=== PATIENT | male | born 1965 | race Caucasian/White ===

== ENCOUNTER 2022-01-24 14:36 | Emergency (ER) | payer MEDICARE, MEDICAID, SELFPAY ==
--- NOTE | ~2022-01-24 | CT_ITS ---
EXAMINATION: CT SOFT TISSUE NECK WITH CONTRAST CLINICAL INFORMATION: Rule out Cesario's angina. COMPARISON: None TECHNIQUE: Following the administration of 100 mL of Omnipaque 300 intravenous contrast, helical imaging was performed in the axial plane with generation of coronal and sagittal reformatted images. This CT examination was performed using dose optimization techniques as appropriate, variously including the following: *Automated exposure control *Adjustment of mA and/or kV according to patient size (this includes techniques or standardized protocols for targeted exams where dose is matched to indication/reason for exam; i.e. extremities or head) *Use of iterative reconstruction technique DLP: 600 mGy-cm FINDINGS: The left submandibular gland demonstrates asymmetric hyperemia, edema, and stranding with interfascial fluid. Stranding extends from the submandibular triangle to the left anterolateral soft tissues. No drainable fluid collection is seen. There is no evidence of obstructing sialolith or definite dilatation of the fourth and duct. The right submandibular gland appears normal. No definite inflammation is seen along the floor of mouth. The nasopharynx and oropharynx appear normal. There is no evidence of laryngeal lesion. The parotid glands appear normal and symmetric. There is a top normal left level 2A lymph node. Nonenlarged lymph nodes are seen along the bilateral cervical chains. There is evidence of left-sided thyroidectomy with surgical clips seen within the thyroidectomy bed. There is stranding and fluid within the thyroidectomy bed the right lobe of the thyroid gland appears normal. No enlarged upper mediastinal lymph nodes are seen. There is no consolidation in the upper lungs. The major neck vessels appear patent. The imaged intracranial contents appear normal. There is chronic appearing defect of the nasal floor in addition to defects of the nasal septum. The bilateral mastoids are under pneumatized but clear. There is mild paranasal sinus mucosal thickening with some aerated secretions demonstrated. The cervical spine is intact. CT/CT soft tissue neck w IV con IMPRESSION: 1. Inflammatory changes are seen within the left submandibular gland compatible with acute sialoadenitis. No drainable fluid collection is seen. No evidence of obstructing sialolith. Top normal left level 2A lymph node is seen which could be reactive. No definite inflammation is seen along the floor of mouth however direct visual inspection of the oral cavity is recommended for more sensitive evaluation. 2. Left thyroidectomy changes are noted. There is stranding and fluid within the left thyroidectomy bed. Given this appearance, these surgical changes are suspected to be recent. If surgery was not recent, underlying infection/inflammation should be clinically excluded.
[2022-01-24 14:50] VITALS: BP 150/84; BP 196/103; PULSE 103; PULSE 108; RESP 16; O2SAT 97; O2SAT 98; BMI 31.2
--- NOTE | 2022-01-24 14:53 | ED_ITS ---
HPI - Neck Pain/Injury General Chief Complaint: Neck Pain/Injury Stated Complaint: NECK SWELLING Time Seen by Provider: 01/24/22 14:41 Source: patient and EMS Mode of arrival: EMS Limitations: no limitations History of Present Illness HPI Narrative: 56-year-old male with a history of ync-ycceztz-eoogkzuej diabetes, anxiety, high cholesterol, hypertension, nontoxic thyroid nodule who presents from [facility] here with complaints of neck swelling since yesterday. Per patient denies any pain, injury or swelling. No redness or warmth. Denies any dental pain. Actually reports that swelling is improved and not worsened from yesterday. Related Data Previous Rx's Medication Instructions Recorded clindamycin HCl 150 mg capsule 150 mg PO Q6H 7 days #28 caps 01/24/22 Allergies Allergy/AdvReac Type Severity Reaction Status Date / Time penicillin G Allergy Unknown rash Verified 04/26/18 00:00 Penicillins [PENICILLINS] Allergy Unknown HIVES Unverified 11/03/19 19:36 Review of Systems Review of Systems: Yes all other systems are reviewed and are negative Constitutional: Constitutional: Reports no additional constitutional complaints, Denies body ache(s), Denies chills, Denies fever(s), Denies headache(s) and Denies weakness Eyes: Eyes: Reports no additional eye complaints and Denies change in vision ENT: Reports system reviewed and no additional complaints, except as documented, Denies dysphagia, Denies dizziness, Denies headache(s), Denies nasal congestion, Denies nasal discharge, Reports neck mass, Denies neck pain and Reports throat swelling Cardiovascular: Cardiovascular: Reports no additional cardiovascular complaints, Denies chest pain, Denies leg edema and Denies dyspnea Respiratory: Respiratory: Reports no additional respiratory complaints, Denies cough and Denies dyspnea Gastrointestinal: Gastrointestinal: Reports no additional gastrointestinal complaints, Denies abdominal pain, Denies dysphagia, Denies diarrhea, Denies nausea and Denies vomiting Genitourinary: Genitourinary: Denies urinary incontinence Musculoskeletal: Musculoskeletal: Reports no additional musculoskeletal complaints, Denies back pain, Denies arthralgias, Denies joint swelling, Denies neck pain, Denies numbness and Denies tingling Integumentary/Breasts: Skin/Breast: Reports system reviewed and no additional complaints, except as docu and Denies rash Neurologic: Reports system reviewed and no additional complaints, except as documented, Denies Abnormal speech present, Denies dizziness, Denies headache(s), Denies numbness, Denies tingling and Denies weakness Allergic/Immunologic: Allergic/Immunologic: Reports throat swelling PMFSH Past Medical History Attestation statement: The following information was validated with the patient. Source: old records reviewed and nursing notes reviewed Social History Social History Advance Directives: No Advance Directives Information Provided: Yes Physical Exam Vital Signs: Vital Signs: Last Vital Signs Temp 97.6 F 01/24/22 17:38 Pulse 99 01/24/22 17:38 Resp 18 01/24/22 17:38 BP 146/102 H 01/24/22 17:38 Pulse Ox 95 01/24/22 17:38 O2 Del Method 01/24/22 17:38 BMI result Body Mass Index 31.2 Const: General: cooperative, healthy appearing, comfortable and no acute distress Orientation/consciousness: patient oriented x3 Limitations: no limitations HEENT: Head: Yes normal to inspection Ears: hearing grossly normal bilaterally and TM's normal bilaterally General nose exam: Normal external nose present Face and sinus: Yes normal facial exam Mouth: Normal oral and palatal mucosa present Throat: Yes posterior oropharynx normal Eyes: General: appearance normal, both eyes and all related structures Pupils: Equal, round and reactive pupils present Neck: Other: Patient with submental swelling which is nontender. Moderate swelling noted. No swelling underneath the tongue noted. No stridor Neck: Yes normal visual inspection, Yes full ROM, Yes no lymphadenopathy and Yes no meningeal signs Chest: Chest palpation & inspection: normal inspection of the chest Resp: Effort & Inspection: normal respiratory effort Auscultation: clear to auscultation bilaterally Cardio: Rate: regular rate Rhythm: regular rhythm Peripheral pulses: Peripheral pulses 2+ throughout GI: Inspection: Yes normal to inspection Palpation (GI): Soft to palpation and nontender Auscultation: normal bowel sounds : General: Yes no CVA tenderness Back/Spine/Pelvis: Back: no CVA tenderness Thoracic/Lumbar Spine: thoracic and lumbar spine normal to inspection Skin: General skin exam: no rashes or lesions noted Neuro: General: patient oriented x3, no meningeal signs, no focal motor deficits and normal sensation to monofilament Cranial nerves: Yes Equal, round and reactive pupils present Cognition (Neuro): normal cognition Speech: No Abnormal speech present Gait exam (Neuro): Normal gait present Motor exam (neuro): 5/5 motor strength present throughout Extrem: General: Yes normal to inspection Course Course Course Narrative: Lactic is 3.8. This is likely secondary to metformin and not from infection. Patient's sodium is 129. Likely medication related. Patient received 250 of normal saline to this point. Will discontinue fluids to prevent further hyponatremia Reevaluation(s) Reevaluation #1: CT soft tissue neck shows 1.? Inflammatory changes are seen within the left submandibular gland compatible with acute sialoadenitis. No drainable fluid collection is seen. No evidence of obstructing sialolith. Top normal left level 2A lymph node is seen which could be reactive. No definite inflammation is seen along the floor of mouth however direct visual inspection of the oral cavity is recommended for more sensitive evaluation. 2.? Left thyroidectomy changes are noted. There is stranding and fluid within the left thyroidectomy bed. Given this appearance, these surgical changes are suspected to be recent. If surgery was not recent, underlying infection/inflammation should be clinically excluded. -patient reports had thyroidectomy 2 years ago. Patient tolerating secretions. No difficulty with eating or drinking. Overall appears nontoxic. Anticipate that patient can go home. Needs repeat labs Reevaluation #2: Sodium level is low. No previous available for comparison. Sodium x2 unchanged. Patient is alert and oriented. Asymptomatic. Patient on multiple medications which may be contributing to his hyponatremia. Again this may not be in acute finding but I have no previous labs to compare this to. Patient lives in a care home with staff. They can monitor him and he can have repeat labs done next week to evaluate for improvement of the hyponatremia. Plan for discharge home with oral antibiotics. Reviewed worrisome signs and symptoms of when to return to the emergency department. Comfortable plan for discharge home. Medications Administered Discontinued Medications Generic Name Dose Route Start Last Admin Trade Name Freq PRN Reason Stop Dose Admin Sodium Chloride 1,000 mls @ 999 mls/hr 01/24/22 15:00 01/24/22 15:12 Ns IV 01/24/22 16:00 999 mls/hr .Q1H1M AYAN Administration Clindamycin Phosphate 600 mg in 50 mls @ 100 mls/hr 01/24/22 14:49 01/24/22 17:01 Cleocin IV 01/24/22 15:18 Infused ONCE ONE Infusion Iohexol 100 ml 01/24/22 17:14 01/24/22 17:17 Iohexol 350 Mg/Ml 100 Ml Infus..Btl IV 01/24/22 17:15 60 ml ONCE ONE Administration Medical Decision Making Medical Decision Making [facility] Narrative: 56-year-old male here with the neck swelling since yesterday with no known injury or trauma and no associated fevers, chills, weight loss, difficulty swallowing or breathing or redness or warmth. Will need labs including blood cultures and lactic acid, CT, IV antibiotics Differential Diagnoses: Differential diagnosis (Parotitis, Cesario's angina) Lab Attestation: I reviewed the patient's lab results. Independent interpretation of EKG, rhythm strip, radiology study: Independent interp EKG,rhythm strip, radiology study I performed an independent interpretation of the: CT Scan (parotitis ) My interpretation is Discussion of test interpretation with radiology: Discussion of test interpretation with radiology Discharge Plan Discharge Clinical Impression: Acute hyponatremia, Acute sialoadenitis Patient Disposition: Home, Self-Care Instructions: Sialoadenitis (ED) Additional Instructions: Increase fluids, apply moist heat to the involved area, massage the gland Tart, hard candies such as lemon drops Return for increasing swelling, drooling, difficulty breathing or swallowing, fevers or chills Star needs to have his sodium levels recheck it in a week by his primary care doctor outpatient. Prescriptions: New clindamycin HCl 150 mg capsule 150 mg PO Q6H 7 Days Qty: 28 0RF Referrals: Alonso Schroeder [Physician] - 1 week
[2022-01-24 15:12] LABS: MANUAL DIFF FLAG NO
[2022-01-24] MEDS: 0.9 % Sodium Chloride 1,000 ML 999 ML IV (15:12)
[2022-01-24 15:15] LABS: Basophils Absolute Auto 0.1 X10*3/uL (0.0-0.2); Basophils Percent Auto 0.8 % (0-2); Eosinophils Absolute Auto 0.2 X10*3/uL (0.0-0.4); Eosinophils Percent Auto 3.9 % (0-4); Hemoglobin 14.8 g/dl (14.0-18.0); Imm Gran Abs Auto 0.01 X10*3/uL (0.00-0.03); Imm Gran Pct Auto 0.2 % (0.0-0.4); Lymphocytes Absolute Auto 1.9 X10*3/uL (1.2-4.9); Mean Corpuscular HGB Conc 32.9 g/dl (31.0-36.0); Mean Corpuscular Hemoglobin 27.5 pg (27.0-33.0); Mean Corpuscular Volume 83.5 fL (80.0-98.0); Mean Platelet Volume 8.9 fL (9.4-12.4); Monocytes Absolute Auto 0.8 X10*3/uL (0.1-1.2); Neutrophils Percent Auto 50.1 % (45-73); Platelet Count 349 X10*3/uL (160-400); Red Blood Count 5.39 X10*6/uL (4.60-5.80); Red Cell Distribution Width 13.6 % (11.0-16.0); White Blood Count 5.9 X10*3/uL (4.8-10.8)
[2022-01-24 15:19] VITALS: BP 167/111; PULSE 111; RESP 16; O2SAT 97
[2022-01-24 15:35] LABS: Alanine Aminotransferase 12 U/L (0-40); Albumin Level 4.3 g/dL (3.5-5.0); Alkaline Phosphatase 62 U/L (39-117); Anion Gap 16 (12-20); Aspartate Amino Transferase 16 U/L (5-37); Bilirubin Direct 0.3 mg/dL (0.0-0.5); Bilirubin Total 0.7 mg/dL (0.0-1.0); Blood Urea Nitrogen 7 mg/dL (9-16); Calcium 9.9 mg/dL (8.4-10.2); Carbon Dioxide 27 mmol/L (22-29); Chloride 91 mmol/L (96-108); Creatinine Clr Calc Pharmacy 111.7; Estimated Glomerular Filt Rate > 60; Glucose Random 97 mg/dL (60-115); Potassium 5.4 mmol/L (3.3-5.1); Sodium 129 mmol/L (135-145)
[2022-01-24 15:43] LABS: Lactic Acid 3.8 mmol/L (0.5-2.0)
[2022-01-24] MEDS: Clindamycin Phosphate/D5W 600 MG/50 ML PIGGYBACK 100 MG IV (16:09)
--- NOTE | 2022-01-24 16:12 | PC.NURSE ---
pt. alert and oriented. denies pain. BP in the 160s. tachy in the 110s. other vs wnl. antibiotics running.
[2022-01-24 16:36] LABS: COVID-19 Test Negative (Negative)
[2022-01-24 17:10] LABS: Reflex Lactate? Lactic Acid Added
[2022-01-24] MEDS: iohexoL 350 MG/ML 100 ML INFUS..BTL IV (17:17)
[2022-01-24 17:38] VITALS: BP 146/102; PULSE 99; RESP 18; TEMP 36.4; O2SAT 95
[2022-01-24 18:38] LABS: Anion Gap 14 (12-20); Blood Urea Nitrogen 6 mg/dL (9-16); Calcium 8.7 mg/dL (8.4-10.2); Carbon Dioxide 24 mmol/L (22-29); Chloride 94 mmol/L (96-108); Estimated Glomerular Filt Rate > 60; Glucose Random 84 mg/dL (60-115); Potassium 4.3 mmol/L (3.3-5.1); Sodium 128 mmol/L (135-145)
--- NOTE | 2022-01-24 20:11 | MHC.EDTECH ---
Spoke with Anna from [place] for a bls transfer back to [facility] ,Booked for 2100.Rn aware
== END 2022-01-24 23:38 | disposition home or self-care (01) ==
PROVIDERS: Nurse Practitioner Family; Emergency Provider Emergency Medicine Emergency Medical Services; PCP Internal Medicine
DX: K11.21 Acute sialoadenitis (principal); E87.1 Hypo-osmolality and hyponatremia; M54.2 Cervicalgia; M54.50 Low back pain, unspecified; E11.9 Type 2 diabetes mellitus without complications; F41.1 Generalized anxiety disorder; F43.0 Acute stress reaction; Z20.822 Contact with and (suspected) exposure to COVID-19; Z79.899 Other long term (current) drug therapy
CPT/HCPCS: 36415; 70491; 80048; 80076; 83605; 85025; 87040; 87635; 96361; 96374; 99284; 99285; Q9967

== ENCOUNTER 2024-01-20 11:26 | Outpatient (AMB) | payer MEDICARE, SELFPAY ==
--- NOTE | 2024-01-20 11:27 | A.OFFVIS_ITS ---
Vital Signs 01/20/24 11:29 Height 5 ft 5 in Weight 194 lb 0.108 oz BMI 32.3 BP 158/90 H Blood Pressure Location Rt brachial Position Sitting Pulse 60 Pulse Source Pulse Oximeter Pulse Oximetry (%) 98 Oxygen Delivery Method Room Air Intake Visit Reasons: Colonoscopy Screening Intake Note: Star presents in office today for a scheduled colo scrn CC; Relevant GI Sx as reported per pt? Recent hx of relevant surgeries? [place] w/ Dr. Sal x4-5 years ago. ? Relevant FMHx? Home Administrator Required: No Allergies penicillin G Allergy (Unknown, Verified 01/20/24 11:30) rash Penicillins [PENICILLINS] Allergy (Unknown, Verified 01/20/24 11:30) HIVES HPI HPI Colonoscopy Screening: Details: 58 year old? male with past medical history of diabetes, anxiety, depression, hypercholesteremia, hypertension is here today for initial consultation. Patient resides in [facility] here today for pre colonoscopy screening.? Patient was sent to us by his PCP.? Last colonoscopy in July of 2019, 1 tubular adenoma found.? Patient denies any gastrointestinal symptoms in the past or at present.? Patient reports family history of CRC. Patient reports that his mom and maternal aunts were diagnosed with colon cancer.? Denies history of diff iculty with sedation or anesthesia in the past.? Negative for history of sleep apnea.? Denies any history of cardiac, renal, pulmonary, or hepatic disease.?? No history of infectious? diseases like hepatitis A, B, C, HIV or tuberculosis.? Patient is on low-dose aspirin PFSH Medical History (Updated 01/20/24 @ 11:37 by CHRISTIAN Kelley) Diabetes Hyperlipidemia HTN (hypertension) Surgical History (Updated 01/20/24 @ 11:37 by CHRISTIAN Kelley) H/O colonoscopy (~2019) Family History (Updated 01/20/24 @ 11:38 by CHRISTIAN Kelley) Mother Colon abnormality Leukemia Maternal Aunt Colon cancer Social History (Updated 01/20/24 @ 11:38 by CHRISTIAN Kelley) Alcohol intake: never Patient Tobacco Use Status: Never used Tobacco Use of substances other than those prescribed or required for medical reasons: No Review of Systems Const Denies weight gain and Denies weight loss ENT Reports no additional complaints, Denies dysphagia and Denies odynophagia Card Reports no additional complaints Resp Reports no additional complaints GI Denies abdominal pain, Denies belching, Denies melena, Denies bloating, Denies change in bowel habits, Denies dysphagia, Denies excessive flatus, Denies dyspepsia, Denies heartburn, Denies diarrhea, Denies loose stools, Denies nausea, Denies odynophagia and Denies vomiting Reports no additional complaints Musc Reports no additional complaints Neuro Reports no additional complaints Psych Reports no additional complaints Endo Reports no additional complaints Physical Exam Vital Signs: Last Vital Signs Pulse 60 01/20/24 11:29 BP 158/90 H 01/20/24 11:29 Pulse Ox 98 01/20/24 11:29 Oxygen Delivery Method Room Air 01/20/24 11:29 BMI result Body Mass Index 32.3 Const General: healthy appearing, no acute distress and well developed Nutritional Appearance: well nourished Orientation/consciousness: patient oriented x3 Resp Effort & Inspection: normal respiratory effort, able to speak in complete sentences, no tracheal deviation and symmetric chest movement Auscultation: clear to auscultation bilaterally Cardio Rate: regular rate GI Inspection: Yes normal to inspection and No distended Palpation (GI): Soft to palpation, not firm, nontender and No hepatosplenomegaly present Auscultation: normal bowel sounds General: Yes no CVA tenderness Back/Spine/Pelvis Back: no CVA tenderness Skin General skin exam: elasticity normal, turgor normal and dry skin Neuro General: patient oriented x3 Psych Appearance: grossly normal Assessment & Plan Assessment & Plan (1) Screen for colon cancer: Code(s): Z12.11 - Encounter for screening for malignant neoplasm of colon Plan Patient denies any GI, cardiac or respiratory symptoms.? Denies any issues with anesthesia in the past.? Denies any history of sleep apnea.? No history infectious diseases in the past or present.? Not on any anticoagulation therapy.? No family or personal history of colon cancer or polyps.? Patient denies melena, hematochezia, unintentional weight loss or ribbon like stools.? Discussed at length the pre-procedure,? prep, diet & medications as well as what to expect prior, during and after the procedure.?? Stressed the importance of good bowel prep.? Recommended the use of Vaseline or Calmoseptine OTC & baby wipes with bowel movements to promote comfort.? ?Patient verbalizes understanding and agrees to plan of care.? He was given the opportunity to ask questions and all questions answered.? We will see him after the procedure.? Medications: New polyethylene glycol 3350 (Miralax) As directed by gastroenterology department at [facility] 238 grams PO ONCE 238 grams 0RF Z12.11 - Encounter for screening for malignant neoplasm of colon bisacodyl (Dulcolax (bisacodyl)) take 4 tabs at noon the day before your colonoscopy 20 mg (4 x 5 mg) PO ONCE 4 tabs 0RF 1 day Z12.11 - Encounter for screening for malignant neoplasm of colon Coding Level of Care Code New Pt Level 3 (44424) Diagnoses Screen for colon cancer Z12.11 Time Spent (min) 40 Comment 30 minutes spent with patient and additional 10 minutes spent reviewing his records
[2024-01-20 11:29] VITALS: BP 158/90; PULSE 60; O2SAT 98; BMI 32.3
--- OUTSIDE RECORDS SUMMARY | 2024-01-26 18:08 | XMS_ITS | Patient Health Record ---
Author Organization [facility] Address [address] [place] [address] Care Team Providers Care Registered Radiologic Technologist Name Role Phone CASSIE DAWKINS Primary Care Provider Charly Olivares Unavailable [phone] ALLERGIES Allergen (clinical drug ingredient) Drug/Non Drug Allergy documented on EMR Reaction Allergy Type Onset Date Status penicillin G Penicillin G Sodium Unknown Drug Allergy Active REASON FOR REFERRAL No Information MEDICATIONS Medication SIG (Take, Route, Frequency, Duration) Notes Start Date End Date Status Lisinopril 20 MG Oral for 28 A ctive Aspirin Low Dose 81 MG Oral for 28 Active Forteo 600 MCG/2.4ML 0.08 ml Subcutaneou s Once a day for 30 day(s) Active Atorvastatin Calcium 20 MG Oral for 28 Active Vitamin D 1 tablet Orally Once a day Active metFORMIN HCl 1000 MG Oral for 28 Active IMMUNIZATIONS Vaccine Route Administration Date Status Comme nts Influenza Unknown 12/17/2018 Administered SOCIAL HISTORY Tobacco Use: Social History Observation Description Date Details (start date - stop date) Never Smoker NA - NA Sex Assigned At : Social History Observation Description Sex Assigned At Unknown Tobacco Use/Smoking Question Answer Notes Patient is a nonsmoker Alcohol Screen Question Answer Notes Did you have a drink contain ing alcohol in the past year? Yes How often did you have a dri nk containing alcohol in the past year? Never (0 point) How many drinks did you have on a typical day when you were drinking in the past year? 1 or 2 drinks (0 point) How often did you have 6 or more drinks on one occasion in the past year? Never (0 point) Points 0 Interpretation Negative PROBLEMS Problem Type ICD Code Onset Dates Problem Status W/U Status Risk SNOMED Code Notes Problem Long-term use of aspirin therapy (Z79.82) Active confirmed 588264336 Problem Family history of colon cancer (Z80.0) Active confirmed 930869575 Problem Encounter for screening for malignant neoplasm of colon (Z12.11) Active confirmed 151543580 PLAN OF TREATMENT Pending Test Test Name Order Date GI BIOPSY 08/03/2019 Future Test Test Name Order Date COLONOSCOPY 04/26/2019 Insurance Providers Payer Name Payer Address Payer Phone Subscriber Number Group Number Insured Name Patient Relationship to Insured Coverage Start Date Coverage End Date MEDICARE OF [place] [address] [place] [id number] ORQUIDEA MONCADA Self - patient is the insured MEDICAID OF [facility] [employer] [address] [place] [address] [id number] ORQUIDEA MONCADA Self - patient is the insured MEDICAL (GENERAL) HISTORY Medical History History ICD Code NIDDM Hypertension Denies GA,,CVA,Lung disease,renal diseas e Back problems--compression fractures Hyperlipidemia Osteoporosis Surgical History Surgery Date(Month/Year) Partial thyroidectomy 2019 Right elbow surgery 2019 Lip surgery Cleft palate
== END 2024-01-20 12:12 | disposition home or self-care (01) ==
PROVIDERS: PCP Internal Medicine; Visit Provider Nurse Practitioner Family
DX: Z01.818 Encounter for other preprocedural examination (principal); Z12.11 Encounter for screening for malignant neoplasm of colon
CPT/HCPCS: 99024

== ENCOUNTER → 2024-01-20 11:26 | Outpatient (BNVA) | payer MEDICARE, SELFPAY | PROVIDERS: PCP Internal Medicine; Visit Provider Nurse Practitioner Family | DX: Z12.11 Encounter for screening for malignant neoplasm of colon (principal) | CPT/HCPCS: 99212 ==

== ENCOUNTER 2024-04-28 07:32 | Day surgery (SDC) | payer MEDICARE, SELFPAY ==
[2024-04-26 14:14] VITALS: BMI 32.3
--- NOTE | 2024-04-27 10:11 | HO.ANESPROP2 ---
Documented by User: Charisse Chen NP 04/27/24 10:16 HPI - Anesthesia Eval Consult details Narrative: 58yo M for Colonoscopy DNR [facility] Past Medical History Medical History (Updated 04/26/24 @ 14:14 by Etta Pedraza RN) Resides in [facility] GERD (gastroesophageal reflux disease) Diabetes Hyperlipidemia HTN (hypertension) Family History Family History (Updated 01/20/24 @ 11:38 by CHRISTIAN Kelley) Mother Colon abnormality Leukemia Maternal Aunt Colon cancer Surgical History Surgical History History of open reduction and internal fixation (ORIF) procedure H/O colonoscopy (~2019) Social History Social History (Updated 01/20/24 @ 11:38 by CHRISTIAN Kelley) Alcohol intake: never Patient Tobacco Use Status: Never used Tobacco Use of substances other than those prescribed or required for medical reasons: No Have you been hit, kicked, punched, or otherwise hurt by someone within the past year? If so, by whom?: No Are you DNR?: No Advance Directives: No Advance Directives Information Provided: Yes Recently lost weight without trying: No Meds Allergies Allergy/AdvReac Type Severity Reaction Status Date / Time Penicillins [PENICILLINS] Allergy Intermediate rash/hives Verified 04/26/24 14:13 Home Medications ?Medication ?Instructions ?Recorded ?Confirmed ?Last Taken ?Type alendronate 70 mg tablet 70 mg PO QWEEK 01/20/24 Unknown History aspirin 81 mg tablet,delayed 81 mg PO DAILY 01/20/24 Unknown History release atorvastatin 20 mg tablet 20 mg PO DAILY 01/20/24 Unknown History calcium carbonate (Calcium Antacid) mg PO 01/20/24 Unknown History cholecalciferol (vitamin D3) 1,250 PO 01/20/24 Unknown History mcg (50,000 unit) capsule cyanocobalamin (vitamin B-12) 1,000 mcg PO DAILY 01/20/24 Unknown History 1,000 mcg tablet (Vitamin B-12) duloxetine 30 mg capsule,delayed 30 mg PO DAILY 01/20/24 Unknown History release glipizide 2.5 mg tablet, extended 2.5 mg PO DAILY 01/20/24 Unknown History release 24 hr lisinopril 40 mg tablet 40 mg PO DAILY 01/20/24 Unknown History metformin 1,000 mg tablet 1,000 mg PO BID 01/20/24 Unknown History metoprolol tartrate 100 mg tablet mg PO 01/20/24 Unknown History omeprazole 20 mg capsule,delayed 20 mg PO DAILY 01/20/24 Unknown History release testosterone cypionate 200 mg/mL mg IM 01/20/24 Unknown History intramuscular oil Exam Height,Weight and Vital Signs: Height 5 ft 5 in Weight 87.997 kg Assessment and Plan Assessment Anesthesia Assessment: Chart Reviewed Documented by User: Darryl Gasca MD 04/28/24 08:14 [facility] Past Medical History Medical History (Updated 04/26/24 @ 14:14 by Etta Pedraza RN) Resides in [facility] GERD (gastroesophageal reflux disease) Diabetes Hyperlipidemia HTN (hypertension) Family History Family History (Updated 01/20/24 @ 11:38 by CHRISTIAN Kelley) Mother Colon abnormality Leukemia Maternal Aunt Colon cancer Family history of problems with anesthesia: No Surgical History Surgical History History of open reduction and internal fixation (ORIF) procedure H/O colonoscopy (~2019) History of Problems with Anesthesia: No Social History Social History (Updated 01/20/24 @ 11:38 by CHRISTIAN Kelley) Alcohol intake: never Patient Tobacco Use Status: Never used Tobacco Use of substances other than those prescribed or required for medical reasons: No Have you been hit, kicked, punched, or otherwise hurt by someone within the past year? If so, by whom?: No Are you DNR?: No Advance Directives: No Advance Directives Information Provided: Yes Recently lost weight without trying: No Meds Allergies Allergy/AdvReac Type Severity Reaction Status Date / Time Penicillins [PENICILLINS] Allergy Intermediate rash/hives Verified 04/26/24 14:13 Home Medications ?Medication ?Instructions ?Recorded ?Confirmed ?Last Taken ?Type alendronate 70 mg tablet 70 mg PO QWEEK 01/20/24 Unknown History aspirin 81 mg tablet,delayed 81 mg PO DAILY 01/20/24 Unknown History release atorvastatin 20 mg tablet 20 mg PO DAILY 01/20/24 Unknown History calcium carbonate (Calcium Antacid) mg PO 01/20/24 Unknown History cholecalciferol (vitamin D3) 1,250 PO 01/20/24 Unknown History mcg (50,000 unit) capsule cyanocobalamin (vitamin B-12) 1,000 mcg PO DAILY 01/20/24 Unknown History 1,000 mcg tablet (Vitamin B-12) duloxetine 30 mg capsule,delayed 30 mg PO DAILY 01/20/24 Unknown History release glipizide 2.5 mg tablet, extended 2.5 mg PO DAILY 01/20/24 Unknown History release 24 hr lisinopril 40 mg tablet 40 mg PO DAILY 01/20/24 Unknown History metformin 1,000 mg tablet 1,000 mg PO BID 01/20/24 Unknown History metoprolol tartrate 100 mg tablet mg PO 01/20/24 Unknown History omeprazole 20 mg capsule,delayed 20 mg PO DAILY 01/20/24 Unknown History release testosterone cypionate 200 mg/mL mg IM 01/20/24 Unknown History intramuscular oil Exam Airway Mallampati Class: II TM Dist: <=3cm Neck ROM: Full Loose/Missing/Broken Teeth: Yes Heart: ok Lungs: ok Assessment and Plan Assessment Anesthesia Assessment: Anesthesia Plan Discussed Final Anesthetic Review Family History of Problems with Anesthesia: No History of Problems with Anesthesia: No NPO: Yes ASA Class: II Final Preanesthetic Review: No Changes in Pt Med Stat, Meds/Allgs Chart Reviewed, Consent Obtained/Reviewed, Anes Risks/Benef Reviewed and DNR Form (If Appl.) Patient Risk: Intermediate Procedure Risk: Low Anesthetic Plan Anesthetic Plan: MAC: and Agree w/ Assess. and Plan Disposition: Standard PACU
--- NOTE | 2024-04-28 07:09 | MHC.SHP ---
Pre-Procedural Eval Section A - 24 Hr Update-Section A only Date of Service: 04/28/24 Section B - Complete if H&P > 30 days Chief Complaint: screening Relevant Family History (Specify if Yes): No Present Medications: see Short Stay Collaborative assessment Medical History: Significant History (Resides in senior facility GERD (gastroesophageal reflux disease) Diabetes Hyperlipidemia HTN (hypertension)) History of Previous Operations: Relevant previous surgery/procedure and date(s) (History of open reduction and internal fixation (ORIF) procedure H/O colonoscopy (~2019)) Allergies: Allergies Allergy/AdvReac Type Severity Reaction Status Date / Time Penicillins [PENICILLINS] Allergy Intermediate rash/hives Verified 04/26/24 14:13 Review of Systems Sugical H&P ROS: Negative: Constitution, Cardiovascular, Respiratory, Neurological, Psychiatric, Hem-Onc, Allergic/Immunologic, Gastrointestinal, Genitourinary, Musculoskeletal, Integumentary, Endocrine and Eyes/Ears/Nose/Throat Exam Surgical H&P Exam: Normal: Heart, Normal: Lungs, Normal: Extremities, Normal: Abdomen, Normal: Skin and Normal: Neurological and Significant Findings: HEENT (small mouth, dysmorphic) Plan Diagnosis/Plan: Unchanged I have reviewed the history and physical and performed a pertinent physical examination on my patient. No changes have occurred unless specified. Time Spent With Patient Time: Total time managing care of this patient today ____ minutes.
[2024-04-28 07:44] VITALS: BP 150/89; PULSE 92; RESP 16; TEMP 36.8; O2SAT 98
[2024-04-28 07:52] LABS: Glucose, Whole Blood 106 mg/dL (60-115)
[2024-04-28 08:18] LABS: Anion Gap 17 (12-20); Carbon Dioxide 25 mmol/L (22-29); Chloride 88 mmol/L (96-108); Potassium 4.7 mmol/L (3.3-5.1); Sodium 125 mmol/L (135-145)
--- NOTE | 2024-04-28 09:02 | HO.OPN-COLON ---
Colonoscopy Operative Note Operative Note Date of Service: 04/28/24 Narrative: Operative Information Procedure Description: Colonoscopy Indication: screening Anesthesia: MAC COLONOSCOPY Instrument: Olympus variable stiffness pediatric scope 190L Colonoscopy Monitoring: Vital signs and clinical assessment, continuous EKG monitoring, Pulse oximetry, Carbon Dioxide monitoring and blood pressure monitoring were done throughout the procedure. Colon withdrawal time was 9 minutes. Procedure: The patient was placed in the left lateral decubitis position and pre-procedure medications were administered. After a digital rectal examination of the ano-rectum, the video colonoscope was inserted into the rectum and advanced through the colon to the cecum/TI. The colonoscope was slowly withdrawn in a retrograde panoramic fashion and the colon mucosa was carefully examined including a retroflexed view of the rectum. Findings and interventions are described below. Procedure Difficulty: moderate Findings: Terminal Ileum-not intubated Cecum:normal Ascending Colon: normal Transverse Colon -normal Descending Colon:normal Sigmoid Colon: moderate diverticulosis Rectum: Retroflexion with small internal hemorrhoids seen, grade I Anorectum - normal Intervention: none Colon preparation: [place] Bowel Preparation Scale Right colon; 1-2 Transverse colon: 2 Left colon; 1-2 (0 = Unprepared colon segment with mucosa not seen due to solid stool that cannot be cleared. 1 = Portion of mucosa of the colon segment seen, but other areas of the colon segment not well seen due to staining, residual stool and/or opaque liquid. 2 = Minor amount of residual staining, small fragments of stool and/or opaque liquid, but mucosa of colon segment seen well. 3 = Entire mucosa of colon segment seen well with no residual staining, small fragments of stool or opaque liquid) Impression and Post Procedure Diagnosis: diverticulosis internal hemorrhoids Plan: High fiber diet leaflet Avoid straining at stool, epsom salts and sitz bath, anusol supps or cream Repeat Colonoscopy in 1-2 years due to areas of fair prep or earlier if clinically indicated Above findings were reviewed with the patient and relevant handouts were provided if indicated.
[2024-04-28 09:08] VITALS: BP 105/66; PULSE 83; RESP 18; TEMP 36.1; O2SAT 98
[2024-04-28 09:23] VITALS: BP 132/81; PULSE 79; RESP 18; TEMP 36.8; O2SAT 100
== END 2024-04-28 10:14 | disposition home or self-care (01) ==
PROVIDERS: Nurse Practitioner; PCP Internal Medicine; Visit Provider Internal Medicine Gastroenterology
PROC: 0DJD8ZZ Inspection of Lower Intestinal Tract, Via Natural or Artificial Opening Endoscopic (ICD-10-PCS; CPT 45378; principal; 2024-04-28 08:20)
DX: Z12.11 Encounter for screening for malignant neoplasm of colon (principal); K57.30 Diverticulosis of large intestine without perforation or abscess without bleeding; K64.0 First degree hemorrhoids; Z86.0101 Personal history of adenomatous and serrated colon polyps; E11.9 Type 2 diabetes mellitus without complications; I10 Essential (primary) hypertension; E78.5 Hyperlipidemia, unspecified; Z79.84 Long term (current) use of oral hypoglycemic drugs; Z79.02 Long term (current) use of antithrombotics/antiplatelets; Z79.82 Long term (current) use of aspirin; Z79.899 Other long term (current) drug therapy
CPT/HCPCS: G0105; 36415; 80051; 82947; J2003; J2704

== ENCOUNTER → 2024-04-28 07:32 | Outpatient (BNV) | payer MEDICARE, SELFPAY | PROVIDERS: PCP Internal Medicine; Visit Provider Internal Medicine Gastroenterology | DX: Z12.11 Encounter for screening for malignant neoplasm of colon (principal); Z86.0101 Personal history of adenomatous and serrated colon polyps; K57.30 Diverticulosis of large intestine without perforation or abscess without bleeding; K64.0 First degree hemorrhoids | CPT/HCPCS: G0105 ==

== ENCOUNTER 2024-05-06 09:09 | Outpatient (AMB) | payer MEDICARE, SELFPAY ==
--- NOTE | 2024-05-06 09:13 | MHC.OFFVIS ---
Vital Signs 05/06/24 09:14 Height 5 ft 5 in Weight 189 lb 2.506 oz BMI 31.5 Pulse 70 Pulse Source Pulse Oximeter Pulse Oximetry (%) 97 Oxygen Delivery Method Room Air Intake Visit Reasons: S/P [employer] Intake Note: ESTABLISHED PATIENT for s/p colo. Pt requires 1-2 year recall due to fair prep. Chief Complaint; Pt reports sx well controlled. No active concerns or sx. Pt would like some general and dietary information regarding diverticulosis. Senior Financial Consultant Required: No Accompanied by: Self / Same As Patient Allergies Penicillins [PENICILLINS] Allergy (Intermediate, Verified 05/06/24 09:13) rash/hives HPI HPI S/P [employer]: Details: LAST VISIT: Screen for colon cancer Plan Patient denies any GI, cardiac or respiratory symptoms.? Denies any issues with anesthesia in the past.? Denies any history of sleep apnea.? No history infectious diseases in the past or present.? Not on any anticoagulation therapy.? No family or personal history of colon cancer or polyps.? Patient denies melena, hematochezia, unintentional weight loss or ribbon like stools.? Discussed at length the pre-procedure,? prep, diet & medications as well as what to expect prior, during and after the procedure.?? Stressed the importance of good bowel prep.? Recommended the use of Vaseline or Calmoseptine OTC & baby wipes with bowel movements to promote comfort.? ?Patient verbalizes understanding and agrees to plan of care.? He was given the opportunity to ask questions and all questions answered.? We will see him after the procedure.? Medications New polyethylene glycol 3350 (Miralax) As directed by gastroenterology department at [facility] 238 grams PO ONCE 238 grams 0RF Z12.11 bisacodyl (Dulcolax (bisacodyl)) take 4 tabs at noon the day before your colonoscopy 20 mg (4 x 5 mg) PO ONCE 4 tabs 0RF 1 day Z12.11 COLONOSCOPY: Findings: Terminal Ileum-not intubated Cecum:normal Ascending Colon: normal Transverse Colon -normal Descending Colon:normal Sigmoid Colon: moderate diverticulosis Rectum: Retroflexion with small internal hemorrhoids seen, grade I Anorectum - normal Intervention: none Colon preparation: [place] Bowel Preparation Scale Right colon; 1-2 Transverse colon: 2 Left colon; 1-2 (0 = Unprepared colon segment with mucosa not seen due to solid stool that cannot be cleared. 1 = Portion of mucosa of the colon segment seen, but other areas of the colon segment not well seen due to staining, residual stool and/or opaque liquid. 2 = Minor amount of residual staining, small fragments of stool and/or opaque liquid, but mucosa of colon segment seen well. 3 = Entire mucosa of colon segment seen well with no residual staining, small fragments of stool or opaque liquid) Impression and Post Procedure Diagnosis: diverticulosis internal hemorrhoids Plan: High fiber diet leaflet Avoid straining at stool, epsom salts and sitz bath, anusol supps or cream Repeat Colonoscopy in 1-2 years due to areas of fair prep or earlier if clinically indicated TODAY'S VISIT: Patient is here today for follow-up and to discuss colonoscopy results. Patient denies any ill effects from the prep, anesthesia or procedure itself. Patient reports to be feeling well. Denies any GI concerning symptoms. Here today to discuss colonoscopy. Patient had no polyps, however he did have suboptimal prep. Moderate diverticulosis seen in sigmoid colon and small internal hemorrhoids. Patient denies melena, hematochezia. Reports that he is moving his bowels every day without any issues. [facility] Medical History (Updated 05/06/24 @ 20:33 by Vika Hines, [facility]) Diverticulosis Resides in [facility] GERD (gastroesophageal reflux disease) Diabetes Hyperlipidemia HTN (hypertension) Surgical History History of open reduction and internal fixation (ORIF) procedure H/O colonoscopy (~2019) Family History Mother Colon abnormality Leukemia Maternal Aunt Colon cancer Social History Alcohol intake: never Patient Tobacco Use Status: Never used Tobacco Review of Systems Const Denies weight gain and Denies weight loss ENT Reports no additional complaints, Denies dysphagia and Denies odynophagia Card Reports no additional complaints Resp Reports no additional complaints GI Denies abdominal pain, Denies belching, Denies melena, Denies bloating, Denies change in bowel habits, Denies dysphagia, Denies excessive flatus, Denies dyspepsia, Denies heartburn, Denies diarrhea, Denies loose stools, Denies nausea, Denies odynophagia and Denies vomiting Reports no additional complaints Musc Reports no additional complaints Neuro Reports no additional complaints Psych Reports no additional complaints Endo Reports no additional complaints Physical Exam Vital Signs: Last Vital Signs Pulse 70 05/06/24 09:14 Pulse Ox 97 05/06/24 09:14 Oxygen Delivery Method Room Air 05/06/24 09:14 BMI result Body Mass Index 31.5 Const General: healthy appearing, no acute distress and well developed Nutritional Appearance: well nourished Orientation/consciousness: patient oriented x3 Resp Effort & Inspection: normal respiratory effort, able to speak in complete sentences, no tracheal deviation and symmetric chest movement Auscultation: clear to auscultation bilaterally Cardio Rate: regular rate GI Inspection: Yes normal to inspection and No distended Palpation (GI): Soft to palpation, not firm, nontender and No hepatosplenomegaly present Auscultation: normal bowel sounds General: Yes no CVA tenderness Back/Spine/Pelvis Back: no CVA tenderness Skin General skin exam: elasticity normal, turgor normal and dry skin Neuro General: patient oriented x3 Psych Appearance: grossly normal Assessment & Plan Assessment & Plan (1) Diverticulosis: Code(s): K57.90 - Diverticulosis of intestine, part unspecified, without perforation or abscess without bleeding Category: Medical (2) Status post colonoscopy: Code(s): Z98.890 - Other specified postprocedural states Plan Suboptimal prep for his colonoscopy as mentioned above in HPI. Patient will start high-fiber diet. Patient can purchase [id number] fiber supplements as well. List of food high in fiber given to patient. Explanation of what diverticulosis is and what kind diet he should be following provided to patient. Handouts given to him. Patient will follow-up in 1 year so we can discuss going for colonoscopy again. Patient is agreeable to this plan and verbalizes understanding of instructions. He was given the opportunity to ask questions and all questions answered. Thank you for allowing me to participate in his care Coding Level of Care Code Est Pt Level 3 (07560) Diagnoses Diverticulosis K57.90 Status post colonoscopy Z98.890 Time Spent (min) 25 Comment 15 minutes spent with patient and additional 10 minutes spent reviewing his records
[2024-05-06 09:14] VITALS: PULSE 70; O2SAT 97; BMI 31.5
--- OUTSIDE RECORDS SUMMARY | 2024-05-06 09:59 | XMS_ITS | Encounter Summary ---
Author Organization [facility] Address [address] [place] [address] Care Team Providers Care Metallurgical Or Materials Technician Name Role Phone Kumar Torres MD Primary Care Provider [phone] Encounter Details Date Type Department Care Team (Late st Contact Info) Description 02/22/2024 Lab Requisition [facility] [address] [facility] [place] [address] Kumar Torres MD [address], [place] [id number] Nontoxic single thyroid nodule; Other testicular dysfunction; Vitamin D deficiency, unspecified; Age-related osteoporosis without current pathological fracture; Type 2 diabetes mellitus without complications (CMS/HCC) Social History Tobacco Use Types Packs/Day Years Used Date Smoking Tobacco: Never Assessed Sex and Gender Information Value Date Recorded Sex Assigned at Not on file Legal Sex Male 3:24 AM EST Gender Identity Not on file Sexual Orientation Not on file documented as of this encounter Plan of Treatment Not on file documented as of this encounter Procedures Procedure Name Priority Date/Time Associated Diagnosis Comments TESTOSTERONE, FREE Routine 02/23/2024 5: 45 AM EST Nontoxic single thyroid nodule Other testicular dysfunction Vitamin D deficiency, unspecified Age-related osteoporosis without current pathological fracture Type 2 diabetes mellitus without complications (CMS/HCC) LIPID PANEL WITH REFLEX TO DIRECT LDL Routine 02/23/2024 5:45 AM EST Nontoxic single thyroid nodule Other testicular dysfunction Vitamin D deficiency, unspecified Age-related osteoporosis without current pathological fracture Type 2 diabetes mellitus without complications (CMS/HCC) COLLAGEN TYPE 1, C-TELOPEPTIDE Routine 02/23/2024 5:45 AM EST Nontoxic single thyroid nodule Other testicular dysfunction Vitamin D deficiency, unspecified Age-related osteoporosis without current pathological fracture Type 2 diabetes mellitus without complications (CMS/HCC) VITAMIN D 25 HYDROXY Routine 02/23/2024 5:45 AM EST Nontoxic single thyroid nodule Other testicular dysfunction Vitamin D deficiency, unspecified Age-related osteoporosis without current pathological fracture Type 2 diabetes mellitus without complications (CMS/HCC) COMPLETE BLOOD COUNT Routine 02/23/2024 5:45 AM EST Nontoxic single thyroid nodule Other testicular dysfunction Vitamin D deficiency, unspecified Age-related osteoporosis without current pathological fracture Type 2 diabetes mellitus without complications (CMS/HCC) TESTOSTERONE, TOTAL Routine 02/23/2024 5 :45 AM EST Nontoxic single thyroid nodule Other testicular dysfunction Vitamin D deficiency, unspecified Age-related osteoporosis without current pathological fracture Type 2 diabetes mellitus without complications (CMS/HCC) HEMOGLOBIN A1C Routine 02/23/2024 5:45 AM EST Nontoxic single thyroid nodule Other testicular dysfunction Vitamin D deficiency, unspecified Age-related osteoporosis without current pathological fracture Type 2 diabetes mellitus without complications (CMS/HCC) VITAMIN B12 Routine 02/23/2024 5:45 AM EST Nontoxic single thyroid nodule Other testicular dysfunction Vitamin D deficiency, unspecified Age-related osteoporosis without current pathological fracture Type 2 diabetes mellitus without complications (CMS/HCC) COMPREHENSIVE METABOLIC PANEL Routine 02/23/2024 5:45 AM EST Nontoxic single thyroid nodule Other testicular dysfunction Vitamin D deficiency, unspecified Age-related osteoporosis without current pathological fracture Type 2 diabetes mellitus without complications (CMS/HCC) documented in this encounter Results * Testosterone, free (02/23/2024 5:45 AM EST) Testosterone Free 34.6 pg/mL 025 4:04 PM EST [facility] Comment: No reference range available for males under 20 years or over 50 years. Test performed at [facility], [address] [place], [place] ??[address] ? [phone] Juany Boogie MD, PhD - Pre School Teacher Blood Venous blood specimen / Unknown Venipuncture / Unknown 02/23/2024 5:45 AM EST 02/23/2024 9:48 AM EST us Kumar Torres MD LAB BLOOD ORDERABLES Final Result Performing Organization Address City/[facility]/ZIP Co de Phone Number [facility] [address] [place] [address] * (ABNORMAL) Testosterone, total (02/23/2024 5:45 AM EST) Pathologist [facility] Testosterone 1,247(H) 229 - 902 ng/dL LAB CHEMISTRY METHOD 02/23/2024 10:32 AM EST [facility] Blood Venous blood specimen / Unknown Venipuncture / Unknown 02/23/2024 5:45 AM EST 02/23/2024 9:48 AM EST us Kumar Torres MD LAB BLOOD ORDERABLES Final Result Performing Organization Address [facility] Co de Phone Number [facility] [address] [place] [address], * Collagen type 1, c-telopeptide (02/23/2024 5:45 AM EST) [facility] Collagen Type 1, C-Telopeptide (CTx) 59 pg/mL 02/26/2024 3:14 PM EST [facility] Comment: Reference Range for Males 18-30 years ? 72-1395 pg/mL 31-50 years ? 46-787 pg/mL 51-70 years ? 34-896 pg/mL >70 years ? Not Established Test performed at [facility], [address] [place], [place] ??[address] ? [phone] Juany Boogie MD, PhD - Pre School Teacher Blood Venous blood specimen / Unknown 02/23/2024 5:45 AM EST 02/23/2024 10:45 AM EST us Kumar Torres MD LAB BLOOD ORDERABLES Final Result [facility] [address] [place] [address] * Vitamin D 25 hydroxy (02/23/2024 5:45 AM EST) Vit D, 25-Hydroxy 38.8 30.0 - 80.0 ng/mL LAB CHEMISTRY METHOD 02/23/2024 10:30 AM EST [facility] Blood Venous blood specimen / Unknown Venipuncture / Unknown 02/23/2024 5:45 AM EST 02/23/2024 9:48 AM EST us Kumar Torres MD LAB BLOOD ORDERABLES Final Result Performing Organization Address [facility]/ZIP Co de Phone Number [facility] [address] [place] [address], [place] [phone] * (ABNORMAL) Vitamin B12 (02/23/2024 5:45 AM EST) [facility] Vitamin B-12 1,291(H) 250 - 900 pcg/mL LAB CHEMISTRY METHOD 02/23/2024 10:47 AM EST [facility] Blood Venous blood specimen / Unknown Venipuncture / Unknown 02/23/2024 5:45 AM EST 02/23/2024 9:48 AM EST us Kumar Torres MD LAB BLOOD ORDERABLES Final Result Performing Organization Address City/[facility]/ZIP Co de Phone Number [facility] [address] [place] [address], [place] [phone] * (ABNORMAL) Hemoglobin A1c (02/23/2024 5:45 AM EST) Pathologist [facility] Hemoglobin A1C 7.1(H) <6.5 % LAB CHEMISTRY METHOD 02/23/2024 11:53 AM [facility] Mean Bld Glu Estim. 157 mg/dL LAB CHEMISTRY METHOD 02/23/2024 11:53 AM [facility] Blood Venous blood specimen / Unknown Venipuncture / Unknown 02/23/2024 5:45 AM EST 02/23/2024 9:49 AM EST us Kumar Torres MD LAB BLOOD ORDERABLES Final Result [facility] [address] [place] [address], [place] [phone] * Lipid panel with reflex to direct LDL (02/23/2024 5:45 AM EST) [facility] Cholesterol 103 0 - 200 mg/dL LAB CHEMISTRY METHOD 02/23/2024 10:25 AM [facility] Triglycerides 69 0 - 150 mg/dL LAB CHEMISTRY METHOD 02/23/2024 10:25 AM [facility] HDL 40 >=40 mg/dL LAB CHEMISTRY METHOD 02/23/2024 10:25 AM [facility] LDL Calculated 49 0 - 100 mg/dL LAB CHEMISTRY METHOD 02/23/2024 10:25 AM [facility] VLDL Cholesterol Francesco 13.8 mg/dL LAB CHEMISTRY METHOD 02/23/2024 10:25 AM [facility] Non HDL Chol. (LDL+VLDL) 63 <145 mg/dL LAB CHEMISTRY METHOD 02/23/2024 10:25 AM [facility] Chol/HDL Ratio 2.6 0.0 - 4.4 LAB CHEMISTRY METHOD 02/23/2024 10:25 AM [facility] Blood Venous blood specimen / Unknown Venipuncture / Unknown 02/23/2024 5:45 AM EST 02/23/2024 9:48 AM EST Kumar Torres MD LAB BLOOD ORDERABLES Final Result [facility] [address] [place] [address], [place] [phone] * (ABNORMAL) Comprehensive metabolic panel (02/23/2024 5:45 AM EST) Sodium 125(L) 133 - 145 mmol/L LAB CHEMISTRY METHOD 02/23/2024 10:25 AM [facility] Potassium 5.3 3.5 - 5.5 mmol/L LAB CHEMISTRY METHOD 02/23/2024 10:25 AM [facility] Chloride 91(L) 96 - 110 mmol/L LAB CHEMISTRY METHOD 02/23/2024 10:25 AM [facility] CO2 30 21 - 32 mmol/L LAB CHEMISTRY METHOD 02/23/2024 10:25 AM [facility] Anion Gap 4 3 - 11 LAB CHEMISTRY METHOD 02/23/2024 10:25 AM [facility] Glucose 116(H) 70 - 100 mg/dL LAB CHEMISTRY METHOD 02/23/2024 10:25 AM [facility] BUN 6 5 - 25 mg/dL LAB CHEMISTRY METHOD 02/23/2024 10:25 AM [facility] Creatinine 0.72 0.70 - 1.30 mg/dL LAB CHEMISTRY METHOD 02/23/2024 10:25 AM [facility] eGFR 107 >=60 mL/min/1. 73m2 LAB CHEMISTRY METHOD 02/23/2024 10:25 AM [facility] Comment:Calculation based on the??Chronic Kidney Disease Epidemiology Collaboration (CKD-EPI) equation refit??without adjustment for race. BUN/Creatinine Ratio 8.3 LAB CHEMISTRY METHOD 02/23/2024 10:25 AM [facility] Calcium 9.1 8.5 - 10.5 mg/dL LAB CHEMISTRY METHOD 02/23/2024 10:25 AM [facility] AST (SGOT) 15 10 - 42 unit/L LAB CHEMISTRY METHOD 02/23/2024 10:25 AM [facility] ALT (SGPT) 19 10 - 60 unit/L LAB CHEMISTRY METHOD 02/23/2024 10:25 AM [facility] Alkaline Phosphatase 73 42 - 121 unit/L LAB CHEMISTRY METHOD 02/23/2024 10:25 AM [facility] Total Protein 7.1 6.0 - 8.0 g/dL LAB CHEMISTRY METHOD 02/23/2024 10:25 AM [facility] Albumin 3.7 3.2 - 5.0 g/dL LAB CHEMISTRY METHOD 02/23/2024 10:25 AM [facility] Total Bilirubin 0.5 0.0 - 1.4 mg/dL LAB CHEMISTRY METHOD 02/23/2024 10:25 AM [facility] Blood Venous blood specimen / Unknown Venipuncture / Unknown 02/23/2024 5:45 AM EST 02/23/2024 9:48 AM EST Kumar Torres MD LAB BLOOD ORDERABLES Final Result [facility] [address] [place] [address], * (ABNORMAL) Complete blood count (02/23/2024 5:45 AM EST) WBC 8.4 4.8 - 10.8 K/[facility] LAB HEMETOLOGY METHOD 02/23/2024 9:55 AM [facility] RBC 4.70 4.50 - 5.50 M/mcL LAB HEMETOLOGY METHOD 02/23/2024 9:55 AM [facility] Hemoglobin 13.0(L) 13.5 - 17.5 g/dL LAB HEMETOLOGY METHOD 02/23/2024 9:55 AM [facility] Hematocrit 41.2(L) 42.0 - 54.0 % LAB HEMETOLOGY METHOD 02/23/2024 9:55 AM [facility] MCV 88.6 79.0 - 98.0 FL LAB HEMETOLOGY METHOD 02/23/2024 9:55 AM [facility] MCH 28.0 27.0 - 32.0 pcg LAB HEMETOLOGY METHOD 02/23/2024 9:55 AM [facility] MCHC 31.6(L) 32.0 - 37.0 g/dL LAB HEMETOLOGY METHOD 02/23/2024 9:55 AM [facility] RDW 13.2 11.0 - 15.0 % LAB HEMETOLOGY METHOD 02/23/2024 9:55 AM [facility] Platelets 443(H) 130 - 400 K/mcL LAB HEMETOLOGY METHOD 02/23/2024 9:55 AM [facility] MPV 9.4 7.0 - 11.0 FL LAB HEMETOLOGY METHOD 02/23/2024 9:55 AM [facility] NRBC 0.0 <1.0 % LAB HEMETOLOGY METHOD 02/23/2024 9:55 AM [facility] NRBC Absolute 0.00 <0.10 K/mcL LAB HEMETOLOGY METHOD 02/23/2024 9:55 AM [facility] Blood Venous blood specimen / Unknown Venipuncture / Unknown 02/23/2024 5:45 AM EST 02/23/2024 9:49 AM EST us Kumar Torres MD LAB BLOOD ORDERABLES Final Result [facility] [address] [place] [address], documented in this encounter Visit Diagnoses Diagnosis Nontoxic single thyroid nodule Nontoxic uninodular goiter Other testicular dysfunction Vitamin D deficiency, unspecified Age-related osteoporosis without current pathological fracture Type 2 diabetes mellitus without complications documented in this encounter Additional Health Concerns Infection Onset Date Last Indicated Resolved Time Respiratory Rule-Out 03/14/2024 03/14/2024 025 10:41 AM EST documented as of this encounter Care Teams Metallurgical Or Materials Technician Relationship Specialty Start Date End Date Kumar Torres MD [address] [place] [id number] PCP - General Internal Medicine 03/08/24 documented as of this encounter
--- OUTSIDE RECORDS SUMMARY | 2024-05-06 09:59 | XMS_ITS | Clinical Summary ---
Author Organization [address] Address [address] [place] [phone] Phone Care Team Providers Care Check And Transfer Beader Name Role Phone Kumar Torres MD Primary Care Provider +1- [phone] Encounters Date Type Department Care Team Description 03/15/2024 Lab Requisition [facility] Lab [address] [place] [phone] Kumar Torres MD Shortness of breath; Acute cough 02/22/2024 Lab Requisition [facility] Lab [address] [place] [phone] Kumar Torres MD Nontoxic single thyroid nodule; Other testicular dysfunction; Vitamin D deficiency, unspecified; Age-related osteoporosis without current pathological fracture; Type 2 diabetes mellitus without complications (CMS/HCC) from Last 3 Months Social History Tobacco Use Types Packs/Day Years Used Date Smoking Tobacco: Never Assessed Sex and Gender Information Value Date Recorded Sex Assigned at Not on file Legal Sex Male 3:24 AM EST Gender Identity Not on file Sexual Orientation Not on file Plan of Treatment Health Maintenance Due Date Last Done Comments Diabetes: Annual Foot Exam 1976 Diabetes: Annual Retina Eye Exam 1976 Hepatitis B Vaccines (1 of 3 - 19+ 3-dose series) 1985 Pneumococcal Vaccine: 50+ Years (2 of 2 - PCV) 06/16/2015 06/15/2014 Pneumococcal Vaccine: Pediatrics (0 to 5 Years) and At-Risk Patients (6 to 64 Years) (2 of 2 - PCV) 06/16/2015 06/15/2014 Zoster Vaccines (1 of 2) 2016 Colorectal Cancer Screening: Colonoscopy 01/19/2022 Depression Screening 01/19/2022 HIV Screening 01/19/2022 Hepatitis C Screening 01/19/2022 Medicare Annual Wellness Visit 01/19/2022 Social Influencers of Health Screening 01/19/2022 DTaP,Tdap,and Td Vaccines (2 - Td or Tdap) 06/15/2022 06/15/2012 COVID-19 Vaccine (1 - 2023-2 5 season) 2023 Influenza Vaccine (#1) 2023 6, 06/21/2015, 11/22/2013 Diabetes: Annual Urine Albumin-Creatinine Ratio (uACR) 08/18/2024 08/19/2023, 12/09/2022 Diabetes: Blood Sugar Contro l Test (HGBA1C) 08/22/2024 02/23/2024 Diabetes: Annual GFR (Glomerular Filtration Rate) 02/22/2025 02/23/2024, 08/19/2023, 12/09/2022 Hypertension/CHF/CAD Annual BMP Blood Test 02/22/2025 02/23/2024, 08/19/2023, 12/09/2022 Cholesterol Screening (Lipid Panel) 02/22/2029 02/23/2024 HIB Vaccines Aged Out No longer eligi ble based on patient's age to complete this topic HPV Vaccines Aged Out No longer eligi ble based on patient's age to complete this topic Hepatitis A Vaccines Aged Out No long er eligible based on patient's age to complete this topic IPV Vaccines Aged Out No longer eligi ble based on patient's age to complete this topic MMR Vaccines Aged Out No longer eligi ble based on patient's age to complete this topic Meningococcal ACWY Vaccine Aged Out N o longer eligible based on patient's age to complete this topic Meningococcal B Vacine Aged Out No lo nger eligible based on patient's age to complete this topic RSV Immunization Patients Under 20 months Aged Out No longer eligible b ased on patient's age to complete this topic Varicella Vaccines Aged Out No longer eligible based on patient's age to complete this topic Procedures Procedure Name Priority Date/Time Associated Diagnosis Comments [id number], RSV, FLU A AND B QUALITATIVE RT-PCR, LOCAL REFERENCE LAB Routine 03/14/2024 12:00 AM EST Shortness of breath Acute cough TESTOSTERONE, FREE Routine 02/23/2024 5: 45 AM [...] fracture Type 2 diabetes mellitus without complications ([facility]) from Last 3 Months Results * [id number], RSV, Influenza A and B qualitative RT-PCR (03/14/2024 12:00 AM EST) SARS COV-2 Not Detected Not Detected LAB MOLECULAR DIAGNOSTICS METHOD 03/15/2024 10:41 AM EST [facility] Comment: Disclaimer: The manner in which this information is used to guide patient care is the responsibility of the healthcare provider. Testing was performed using the inSilica Alinity m SARS-CoV-2 test. This test has been authorized by [facility] under an Emergency Use Authorization (EUA). This test is only authorized for the duration of time the declaration that circumstances exist justifying the authorization of the emergency use of in vitro diagnostic tests for detection of SARS-CoV-2 virus and/or diagnosis of COVID-19 infection under section 564(b)(1) of the Act, 21 U.S.C. 360bbb- 3(b)(1), unless the authorization is terminated or revoked sooner. Fact sheet for Healthcare Providers can be found at: https://www.fda.gov/media/785320/download Fact sheet for Patients can be found at: https://www.fda.gov/media/526342/download Influenza A PCR Not Detected Not Detected LAB MOLECULAR DIAGNOSTICS METHOD 03/15/2024 10:41 AM EST [facility] Influenza B PCR Not Detected Not Detected LAB MOLECULAR DIAGNOSTICS METHOD 03/15/2024 10:41 AM [facility] RSV PCR Not Detected Not Detected LAB MOLECULAR DIAGNOSTICS METHOD 03/15/2024 10:41 AM [facility] Swab Nasopharyngeal structure / Unknown 03/14/2024 03/15/2024 8:19 AM EST Kumar Torres MD LAB MICROBIOLOGY - GENERAL ORDERABLES Final Result Performing Organization Address City/[facility]/ZIP Co de Phone Number [facility] [address] [place] [address], * Testosterone, free (02/23/2024 5:45 AM EST) [facility] Testosterone Free 34.6 pg/mL 025 4:04 PM EST [facility] Comment: No reference range available for males under 20 years or over 50 years. Test performed at [facility], [address] , [place], [place] ??[address] ? [phone] Juany Boogie MD, PhD - Electrical And Instrument Technician Blood Venous blood specimen / Unknown Venipuncture / Unknown 02/23/2024 5:45 AM EST 02/23/2024 9:48 AM EST Kumar Torres MD LAB BLOOD ORDERABLES Final Result Performing Organization Address [facility]/ZIP Co de Phone Number [facility] [address] [place] [address] * Lipid panel with reflex to direct LDL (02/23/2024 5:45 AM EST) [facility] Cholesterol 103 0 - 200 mg/dL LAB CHEMISTRY METHOD 02/23/2024 10:25 AM EST [facility] Triglycerides 69 0 - 150 mg/dL LAB CHEMISTRY METHOD 02/23/2024 10:25 AM EST [facility] HDL 40 >=40 mg/dL LAB CHEMISTRY METHOD 02/23/2024 10:25 AM EST [facility] LDL Calculated 49 0 - 100 mg/dL LAB CHEMISTRY METHOD 02/23/2024 10:25 AM EST [facility] VLDL Cholesterol Francesco 13.8 mg/dL LAB CHEMISTRY METHOD 02/23/2024 10:25 AM EST [facility] Non HDL Chol. (LDL+VLDL) 63 <145 mg/dL LAB CHEMISTRY METHOD 02/23/2024 10:25 AM EST [facility] Chol/HDL Ratio 2.6 0.0 - 4.4 LAB CHEMISTRY METHOD 02/23/2024 10:25 AM EST [facility] Blood Venous blood specimen / Unknown Venipuncture / Unknown 02/23/2024 5:45 AM EST 02/23/2024 9:48 AM EST Kumar Torres MD LAB BLOOD ORDERABLES Final Result Performing Organization Address City/[facility]/ZIP Co de Phone Number [facility] [address] [place] [address], * Collagen type 1, c-telopeptide (02/23/2024 5:45 AM EST) Pathologist [facility] Collagen Type 1, C-Telopeptide (CTx) 59 pg/mL 02/26/2024 3:14 PM EST [facility] Comment: Reference Range for Males 18-30 years ? 72-1395 pg/mL 31-50 years ? 46-787 pg/mL 51-70 years ? 34-896 pg/mL >70 years ? Not Established Test performed at [facility], [address] [place], [place] ??[address] ? [phone] Juany Boogie MD, PhD - Electrical And Instrument Technician Blood Venous blood specimen / Unknown 02/23/2024 5:45 AM EST 02/23/2024 10:45 AM EST us Kumar Torres MD LAB BLOOD ORDERABLES Final Result Performing Organization Address [facility]/ZIP Co de Phone Number [facility] [address] [place] [address] * Vitamin D 25 hydroxy (02/23/2024 5:45 AM EST) Pathologist [facility] Vit D, 25-Hydroxy 38.8 30.0 - 80.0 ng/mL LAB CHEMISTRY METHOD 02/23/2024 10:30 AM [facility] Blood Venous blood specimen / Unknown Venipuncture / Unknown 02/23/2024 5:45 AM EST 02/23/2024 9:48 AM EST us Kumar Torres MD LAB BLOOD ORDERABLES Final Result [facility] [address] [place] [address], * (ABNORMAL) Complete blood count (02/23/2024 5:45 AM EST) WBC 8.4 4.8 - 10.8 K/mcL LAB HEMETOLOGY METHOD 02/23/2024 9:55 AM [facility] RBC 4.70 4.50 - 5.50 M/mcL LAB HEMETOLOGY METHOD 02/23/2024 9:55 AM [facility] Hemoglobin 13.0(L) 13.5 - 17.5 g/dL LAB HEMETOLOGY METHOD 02/23/2024 9:55 AM [facility] Hematocrit 41.2(L) 42.0 - 54.0 % LAB HEMETOLOGY METHOD 02/23/2024 9:55 AM [facility] MCV 88.6 79.0 - 98.0 FL LAB HEMETOLOGY METHOD 02/23/2024 9:55 AM [facility] MCH 28.0 27.0 - 32.0 pcg LAB HEMETOLOGY METHOD 02/23/2024 9:55 AM [facility] MCHC 31.6(L) 32.0 - 37.0 g/dL LAB HEMETOLOGY METHOD 02/23/2024 9:55 AM [facility] RDW 13.2 11.0 - 15.0 % LAB HEMETOLOGY METHOD 02/23/2024 9:55 AM EST [facility] Platelets 443(H) 130 - 400 K/mcL LAB HEMETOLOGY METHOD 02/23/2024 9:55 AM EST [facility] MPV 9.4 7.0 - 11.0 FL LAB HEMETOLOGY METHOD 02/23/2024 9:55 AM EST [facility] NRBC 0.0 <1.0 % LAB HEMETOLOGY METHOD 02/23/2024 9:55 AM EST [facility] NRBC Absolute 0.00 <0.10 K/mcL LAB HEMETOLOGY METHOD 02/23/2024 9:55 AM EST [facility] Blood Venous blood specimen / Unknown Venipuncture / Unknown 02/23/2024 5:45 AM EST 02/23/2024 9:49 AM EST us Kumar Torres MD LAB BLOOD ORDERABLES Final Result [facility] [address] [place] [address], [place] [phone] * (ABNORMAL) Testosterone, total (02/23/2024 5:45 AM EST) [facility] Testosterone 1,247(H) 229 - 902 ng/dL LAB CHEMISTRY METHOD 02/23/2024 10:32 AM EST [facility] Blood Venous blood specimen / Unknown Venipuncture / Unknown 02/23/2024 5:45 AM EST 02/23/2024 9:48 AM EST us Kumar Torres MD LAB BLOOD ORDERABLES Final Result [facility] [address] [place] [address], [place] [phone] * (ABNORMAL) Hemoglobin A1c (02/23/2024 5:45 AM EST) [facility] Hemoglobin A1C 7.1(H) <6.5 % LAB CHEMISTRY METHOD 02/23/2024 11:53 AM EST [facility] Mean Bld Glu Estim. 157 mg/dL LAB CHEMISTRY METHOD 02/23/2024 11:53 AM EST [facility] Blood Venous blood specimen / Unknown Venipuncture / Unknown 02/23/2024 5:45 AM EST 02/23/2024 9:49 AM EST Kumar Torres MD LAB BLOOD ORDERABLES Final Result [facility] [address] [place] [address], [place] [phone] * (ABNORMAL) Vitamin B12 (02/23/2024 5:45 AM EST) [facility] Vitamin B-12 1,291(H) 250 - 900 pcg/mL LAB CHEMISTRY METHOD 02/23/2024 10:47 AM EST [facility] Blood Venous blood specimen / Unknown Venipuncture / Unknown 02/23/2024 5:45 AM EST 02/23/2024 9:48 AM EST Kumar Torres MD LAB BLOOD ORDERABLES Final Result [facility] [address] [place] [address], [place] [phone] * (ABNORMAL) Comprehensive metabolic panel (02/23/2024 5:45 AM EST) [facility] Sodium 125(L) 133 - 145 mmol/L LAB CHEMISTRY METHOD 02/23/2024 10:25 AM EST [facility] Potassium 5.3 3.5 - 5.5 mmol/L LAB CHEMISTRY METHOD 02/23/2024 10:25 AM EST [facility] Chloride 91(L) 96 - 110 mmol/L LAB CHEMISTRY METHOD 02/23/2024 10:25 AM [facility] CO2 30 21 - 32 mmol/L LAB CHEMISTRY METHOD 02/23/2024 10:25 AM [facility] Anion Gap 4 3 - 11 LAB CHEMISTRY METHOD 02/23/2024 10:25 AM [facility] Glucose 116(H) 70 - 100 mg/dL LAB CHEMISTRY METHOD 02/23/2024 10:25 AM [facility] BUN 6 5 - 25 mg/dL LAB CHEMISTRY METHOD 02/23/2024 10:25 AM [facility] Creatinine 0.72 0.70 - 1.30 mg/dL LAB CHEMISTRY METHOD 02/23/2024 10:25 AM [facility] eGFR 107 >=60 mL/min/1. 73m2 LAB CHEMISTRY METHOD 02/23/2024 10:25 AM [facility] Comment:Calculation based on the??Chronic Kidney Disease Epidemiology Collaboration (CKD-EPI) equation refit??without adjustment for race. BUN/Creatinine Ratio 8.3 LAB CHEMISTRY METHOD 02/23/2024 10:25 AM [facility] Calcium 9.1 8.5 - 10.5 mg/dL LAB CHEMISTRY METHOD 02/23/2024 10:25 AM [facility] AST (SGOT) 15 10 - 42 unit/L LAB CHEMISTRY METHOD 02/23/2024 10:25 AM [facility] ALT (SGPT) 19 10 - 60 unit/L LAB CHEMISTRY METHOD 02/23/2024 10:25 AM [facility] Alkaline Phosphatase 73 42 - 121 unit/L LAB CHEMISTRY METHOD 02/23/2024 10:25 AM [facility] Total Protein 7.1 6.0 - 8.0 g/dL LAB CHEMISTRY METHOD 02/23/2024 10:25 AM [facility] Albumin 3.7 3.2 - 5.0 g/dL LAB CHEMISTRY METHOD 02/23/2024 10:25 AM [facility] [place] [facility] Total Bilirubin 0.5 0.0 - 1.4 mg/dL LAB CHEMISTRY METHOD 02/23/2024 10:25 AM EST [facility]) [facility] Blood Venous blood specimen / Unknown Venipuncture / Unknown 02/23/2024 5:45 AM EST 02/23/2024 9:48 AM EST Kumar Torres MD LAB BLOOD ORDERABLES Final Result [facility]) [facility] [address] [place] [address], from Last 3 Months Insurance MEDICAID - [place] [employer] MEDICARE ADVANTAGE Care Teams Check And Transfer Beader Relationship Specialty Start Date End Date Kumar Torres MD [address] [place] [address] PCP - General Internal Medicine 03/08/24
--- OUTSIDE RECORDS SUMMARY | 2024-05-06 09:59 | XMS_ITS | Encounter Summary ---
Author Organization [facility] Address [address] [place] [address] Care Team Providers Care Formation Fracturing Operator Name Role Phone Kumar Torres MD Primary Care Provider +1- [phone] Encounter Details Date Type Department Care Team (Late st Contact Info) Description 03/15/2024 Lab Requisition [facility] - [facility] Lab [address] [place] [address] Kumar Torres MD [address] [place], [place] [phone] Shortness of breath; Acute cough Social History Tobacco Use Types Packs/Day Years [...] Procedure Name Priority Date/Time Associated Diagnosis Comments [id number], RSV, FLU A AND B QUALITATIVE RT-PCR, LOCAL REFERENCE LAB Routine 03/14/2024 12:00 AM EST Shortness of breath Acute cough documented in this encounter Results * [id number], RSV, Influenza A and B qualitative RT-PCR (03/14/2024 12:00 AM EST) SARS COV-2 Not Detected Not Detected LAB MOLECULAR DIAGNOSTICS METHOD 03/15/2024 10:41 AM EST [facility] Comment: Disclaimer: The manner in which this information is used to guide patient care is the responsibility of the healthcare provider. Testing was performed using the Limon Alinity m SARS-CoV-2 test. This test has been authorized by FDA under an Emergency Use Authorization (EUA). This [...] for Healthcare Providers can be found at: https://www.fda.gov/media/945638/download Fact sheet for Patients can be found at: https://www.fda.gov/media/672183/download Influenza A PCR Not Detected Not Detected LAB MOLECULAR DIAGNOSTICS METHOD 03/15/2024 10:41 AM EST [facility] Influenza B PCR Not Detected Not Detected LAB MOLECULAR DIAGNOSTICS METHOD 03/15/2024 10:41 AM EST [facility] RSV PCR Not Detected Not Detected LAB MOLECULAR DIAGNOSTICS METHOD 03/15/2024 10:41 AM EST [facility] Swab Nasopharyngeal structure / Unknown 03/14/2024 03/15/2024 8:19 AM EST us Kumar Torres MD LAB MICROBIOLOGY - GENERAL ORDERABLES Final Result [facility] [address] [place] [address], documented in this encounter Visit Diagnoses Diagnosis Shortness of breath Acute cough documented in this encounter Additional Health Concerns Infection Onset Date Last Indicated Resolved Time Respiratory Rule-Out 03/14/2024 03/14/2024 025 10:41 AM EST documented as of this encounter Care Teams Formation Fracturing Operator Relationship Specialty Start Date End Date Kumar Torres MD [address] [place] [id number] PCP - General Internal Medicine 03/08/24 documented as of this encounter
--- OUTSIDE RECORDS SUMMARY | 2024-05-06 09:59 | XMS_ITS | Patient Health Record ---
Author Organization [facility] Address [address] [place] [address] Care Team Providers Care Water Service Dispatcher Name Role Phone CASSIE DAWKINS Primary Care Provider Charly Olivares Unavailable [phone] Allergies Allergen (clinical drug ingredient) Drug/Non Drug Allergy documented on EMR Reaction Allergy Type Onset Date Status penicillin G Penicillin G Sodium Unknown Drug Allergy Active Reason For Referral No Information Medications Medication SIG (Take, Route, Frequency, Duration) Notes [...] HCl 1000 MG Oral for 28 Active Immunizations Vaccine Route Administration Date Status Comme nts Influenza Unknown 12/17/2018 Administered Social History Tobacco Use: Social History Observation Description Date Details (start date - stop date) Never Smoker NA - NA Tobacco Use/Smoking Question Answer Notes Patient is [...] Never (0 point) Points 0 Interpretation Negative Section Notes: Nonsmoker; very occasional d rink Problems Problem Type SNOMED Code ICD Code Onset Dates Problem Status W/U Status Risk Notes Problem 056059960 Encounter for screening for malignant neoplasm of colon (Z12.11) Active confirmed Problem 670293802 Family history of colon cancer (Z80.0) Active confirmed Problem 302760591 Long-term use of aspirin therapy (Z79.82) Active confirmed Plan Of Treatment Pending Test Test Name Order Date GI BIOPSY 08/03/2019 Future Test Test Name Order Date COLONOSCOPY 04/26/2019 Insurance Providers Payer Name Payer Address Payer Phone Subscriber Number Group Number Insured Name Patient Relationship to Insured Coverage Start Date Coverage End Date MEDICARE OF [place] [address] [place] [id number] ORQUIDEA MONCADA Self - patient is the insured MEDICAID OF [facility] [address] [place] [address] [id number] ORQUIDEA MONCADA Self - patient is the insured Medical (General) History Medical History History ICD Code NIDDM Hypertension Denies [place],,CVA,Lung disease,renal diseas e Back problems--compression fractures Hyperlipidemia Osteoporosis Surgical History Surgery Date(Month/Year) Partial thyroidectomy 2019 Right elbow surgery 2019 Lip surgery Cleft palate
== END 2024-05-06 09:31 | disposition home or self-care (01) ==
LOC: HO.HGI 09:09
PROVIDERS: PCP Internal Medicine; Visit Provider Nurse Practitioner Family
DX: K57.90 Diverticulosis of intestine, part unspecified, without perforation or abscess without bleeding (principal); Z98.890 Other specified postprocedural states
CPT/HCPCS: 99213

== ENCOUNTER → 2024-05-06 09:09 | Outpatient (BNVA) | payer MEDICARE, SELFPAY | PROVIDERS: PCP Internal Medicine; Visit Provider Nurse Practitioner Family | DX: K57.90 Diverticulosis of intestine, part unspecified, without perforation or abscess without bleeding (principal); Z98.890 Other specified postprocedural states | CPT/HCPCS: 99212 ==

== ENCOUNTER 2024-05-20 08:46 | Emergency (ER) | payer MEDICARE, MEDICAID, SELFPAY ==
[2024-05-20 08:58] VITALS: BP 140/100; BP 186/110; PULSE 72; PULSE 75; RESP 16; TEMP 36.4; O2SAT 97; O2SAT 98; BMI 31.3
[2024-05-20 09:44] VITALS: BP 186/110; PULSE 75
[2024-05-20] MEDS: lisinopriL 40 MG TABLET PO (09:44)
[2024-05-20] MEDS: Metoprolol Tartrate 100 MG TABLET PO (09:44)
--- OUTSIDE RECORDS SUMMARY | 2024-05-20 09:56 | XMS_ITS | Encounter Summary ---
Author Organization [facility] Address [address] [place] [address] Care Team Providers Care Educational Fundraising Director Name Role Phone Kumar Torres MD Primary Care Provider +1- [phone] Encounter Details Date Type Department Care Team (Late st Contact Info) Description 03/15/[address] [facility] - Main Lab [address] [place] [address] Kumar Torres MD [address] [place], [place] [phone] Shortness of breath; Acute cough Social History [...] Procedure Name Priority Date/Time Associated Diagnosis Comments [id number], RSV, FLU A AND B QUALITATIVE RT-PCR, LOCAL REFERENCE LAB Routine 03/14/2024 12:00 AM EST Shortness of breath Acute cough documented in this encounter Results * [id number], RSV, Influenza A and B qualitative RT-PCR (03/14/2024 12:00 AM EST) SARS COV-2 Not Detected Not Detected LAB MOLECULAR DIAGNOSTICS METHOD 03/15/2024 10:41 AM EST [facility] Comment: Disclaimer: The manner [...] for Healthcare Providers can be found at: https://www.fda.gov/media/798689/download Fact sheet for Patients can be found at: https://www.fda.gov/media/912294/download Influenza A PCR Not Detected Not Detected LAB MOLECULAR DIAGNOSTICS METHOD 03/15/2024 10:41 AM EST [facility] Influenza B PCR Not Detected Not Detected LAB MOLECULAR DIAGNOSTICS METHOD 03/15/2024 10:41 AM EST [facility] RSV PCR Not Detected Not Detected LAB MOLECULAR DIAGNOSTICS METHOD 03/15/2024 10:41 AM EST [facility] Swab Nasopharyngeal structure / Unknown 03/14/2024 03/15/2024 8:19 AM EST us Kumar Torres MD LAB MICROBIOLOGY - GENERAL ORDERABLES Final Result [facility] [address] [place] [address], documented in this encounter Visit Diagnoses Diagnosis Shortness of breath Acute cough documented in this encounter Additional Health Concerns Infection Onset Date Last Indicated Resolved Time Respiratory Rule-Out 03/14/2024 03/14/2024 025 10:41 AM EST documented as of this encounter Care Teams Educational Fundraising Director Relationship Specialty Start Date End Date Kumar Torres MD [address] [place] [id number] PCP - General Internal Medicine 03/08/24 documented as of this encounter
--- OUTSIDE RECORDS SUMMARY | 2024-05-20 09:56 | XMS_ITS | Encounter Summary ---
Author Organization [facility] Address [address] [place] [address] Care Team Providers Care Weir Fisher Name Role Phone Kumar Torres MD Primary Care Provider [phone]- [phone] Encounter Details Date Type Department Care Team (Late st Contact Info) Description 02/22/2024 Lab Requisition [facility] - Main Lab [address] [facility] [place] [address] Kumar Torres MD [address] [place], [place] [id number] Nontoxic single thyroid nodule; Other testicular dysfunction; [...] Free 34.6 pg/mL 025 4:04 PM EST [facility] Comment: No reference range available for males under 20 years or over 50 years. Test performed at [facility], [address] [place], [place] ??[address] ? [phone] Juany Boogie MD, PhD - Business Leader Blood Venous blood specimen / Unknown Venipuncture / Unknown 02/23/2024 5:45 AM EST 02/23/2024 9:48 AM EST us Kumar Torres MD LAB BLOOD ORDERABLES Final Result Performing Organization Address City/[facility]/ZIP Co de Phone Number [facility] [address] [place] [address] * (ABNORMAL) Testosterone, total (02/23/2024 5:45 AM EST) Pathologist [facility] Testosterone 1,247(H) 229 - 902 ng/dL LAB CHEMISTRY METHOD 02/23/2024 10:32 AM EST [facility] Blood Venous blood specimen / Unknown Venipuncture / Unknown 02/23/2024 5:45 AM EST 02/23/2024 9:48 AM EST us Kumar Torres MD LAB BLOOD ORDERABLES Final Result Performing Organization Address [facility] Co de Phone Number [facility] [address] [place] [address], * Collagen type 1, c-telopeptide (02/23/2024 5:45 AM EST) [facility] Collagen Type 1, C-Telopeptide (CTx) 59 pg/mL 02/26/2024 3:14 PM EST [facility] Comment: Reference Range for Males 18-30 years ? 72-1395 pg/mL 31-50 years ? 46-787 pg/mL 51-70 years ? 34-896 pg/mL >70 years ? Not Established Test performed at [facility], [address] [place], [place] ??[address] ? [phone] Juany Boogie MD, PhD - Business Leader Blood Venous blood specimen / Unknown 02/23/2024 5:45 AM EST 02/23/2024 10:45 AM EST us Kumar Torres MD LAB BLOOD ORDERABLES Final Result [facility] [address] [place] [address] * Vitamin D 25 hydroxy (02/23/2024 5:45 AM EST) Vit D, 25-Hydroxy 38.8 30.0 - 80.0 ng/mL LAB CHEMISTRY METHOD 02/23/2024 10:30 AM EST [facility] Blood Venous blood specimen / Unknown Venipuncture / Unknown 02/23/2024 5:45 AM EST 02/23/2024 9:48 AM EST us Kumar Torres MD LAB BLOOD ORDERABLES Final Result Performing Organization Address [facility]/ZIP Co de Phone Number [facility] [address] [place] [address], [place] [phone] * (ABNORMAL) Vitamin B12 (02/23/2024 5:45 AM EST) [facility] Vitamin B-12 1,291(H) 250 - 900 pcg/mL LAB CHEMISTRY METHOD 02/23/2024 10:47 AM EST [facility] Blood Venous blood specimen / Unknown Venipuncture / Unknown 02/23/2024 5:45 AM EST 02/23/2024 9:48 AM EST us Kumar Torres MD LAB BLOOD ORDERABLES Final Result Performing Organization Address City/[facility]/ZIP Co de Phone Number [facility] [address] [place] [address], [place] [phone] * (ABNORMAL) Hemoglobin A1c (02/23/2024 5:45 AM EST) Pathologist [facility] Hemoglobin A1C 7.1(H) <6.5 % LAB CHEMISTRY METHOD 02/23/2024 11:53 AM [facility] Mean Bld Glu Estim. 157 mg/dL LAB CHEMISTRY METHOD 02/23/2024 11:53 AM [facility] Blood Venous blood specimen / Unknown Venipuncture / Unknown 02/23/2024 5:45 AM EST 02/23/2024 9:49 AM EST us Kumar Torres MD LAB BLOOD ORDERABLES Final Result [facility] [address] [place] [address], [place] [phone] * Lipid panel with reflex to direct LDL (02/23/2024 5:45 AM EST) [facility] Cholesterol 103 0 - 200 mg/dL LAB CHEMISTRY METHOD 02/23/2024 10:25 AM [facility] Triglycerides 69 0 - 150 mg/dL LAB CHEMISTRY METHOD 02/23/2024 10:25 AM [facility] HDL 40 >=40 mg/dL LAB CHEMISTRY METHOD 02/23/2024 10:25 AM [facility] LDL Calculated 49 0 - 100 mg/dL LAB CHEMISTRY METHOD 02/23/2024 10:25 AM [facility] VLDL Cholesterol Francesco 13.8 mg/dL LAB CHEMISTRY METHOD 02/23/2024 10:25 AM [facility] Non HDL Chol. (LDL+VLDL) 63 <145 mg/dL LAB CHEMISTRY METHOD 02/23/2024 10:25 AM [facility] Chol/HDL Ratio 2.6 0.0 - 4.4 LAB CHEMISTRY METHOD 02/23/2024 10:25 AM [facility] Blood Venous blood specimen / Unknown Venipuncture / Unknown 02/23/2024 5:45 AM EST 02/23/2024 9:48 AM EST Kumar Torres MD LAB BLOOD ORDERABLES Final Result [facility] [address] [place] [address], [place] [phone] * (ABNORMAL) Comprehensive metabolic panel (02/23/2024 5:45 AM EST) Sodium 125(L) 133 - 145 mmol/L LAB CHEMISTRY METHOD 02/23/2024 10:25 AM [facility] Potassium 5.3 3.5 - 5.5 mmol/L LAB CHEMISTRY METHOD 02/23/2024 10:25 AM [facility] Chloride 91(L) 96 - 110 mmol/L LAB CHEMISTRY METHOD 02/23/2024 10:25 AM [facility] CO2 30 21 - 32 mmol/L LAB CHEMISTRY METHOD 02/23/2024 10:25 AM [facility] Anion Gap 4 3 - 11 LAB CHEMISTRY METHOD 02/23/2024 10:25 AM [facility] Glucose 116(H) 70 - 100 mg/dL LAB CHEMISTRY METHOD 02/23/2024 10:25 AM [facility] BUN 6 5 - 25 mg/dL LAB CHEMISTRY METHOD 02/23/2024 10:25 AM [facility] Creatinine 0.72 0.70 - 1.30 mg/dL LAB CHEMISTRY METHOD 02/23/2024 10:25 AM [facility] eGFR 107 >=60 mL/min/1. 73m2 LAB CHEMISTRY METHOD 02/23/2024 10:25 AM [facility] Comment:Calculation based on the??Chronic Kidney Disease Epidemiology Collaboration (CKD-EPI) equation refit??without adjustment for race. BUN/Creatinine Ratio 8.3 LAB CHEMISTRY METHOD 02/23/2024 10:25 AM [facility] Calcium 9.1 8.5 - 10.5 mg/dL LAB CHEMISTRY METHOD 02/23/2024 10:25 AM [facility] AST (SGOT) 15 10 - 42 unit/L LAB CHEMISTRY METHOD 02/23/2024 10:25 AM [facility] ALT (SGPT) 19 10 - 60 unit/L LAB CHEMISTRY METHOD 02/23/2024 10:25 AM [facility] Alkaline Phosphatase 73 42 - 121 unit/L LAB CHEMISTRY METHOD 02/23/2024 10:25 AM [facility] Total Protein 7.1 6.0 - 8.0 g/dL LAB CHEMISTRY METHOD 02/23/2024 10:25 AM [facility] Albumin 3.7 3.2 - 5.0 g/dL LAB CHEMISTRY METHOD 02/23/2024 10:25 AM [facility] Total Bilirubin 0.5 0.0 - 1.4 mg/dL LAB CHEMISTRY METHOD 02/23/2024 10:25 AM [facility] Blood Venous blood specimen / Unknown Venipuncture / Unknown 02/23/2024 5:45 AM EST 02/23/2024 9:48 AM EST Kumar Torres MD LAB BLOOD ORDERABLES Final Result [facility] [address] [place] [address], * (ABNORMAL) Complete blood count (02/23/2024 5:45 AM EST) WBC 8.4 4.8 - 10.8 K/[facility] LAB HEMETOLOGY METHOD 02/23/2024 9:55 AM [facility] RBC 4.70 4.50 - 5.50 M/mcL LAB HEMETOLOGY METHOD 02/23/2024 9:55 AM [facility] Hemoglobin 13.0(L) 13.5 - 17.5 g/dL LAB HEMETOLOGY METHOD 02/23/2024 9:55 AM [facility] Hematocrit 41.2(L) 42.0 - 54.0 % LAB HEMETOLOGY METHOD 02/23/2024 9:55 AM [facility] MCV 88.6 79.0 - 98.0 FL LAB HEMETOLOGY METHOD 02/23/2024 9:55 AM [facility] MCH 28.0 27.0 - 32.0 pcg LAB HEMETOLOGY METHOD 02/23/2024 9:55 AM [facility] MCHC 31.6(L) 32.0 - 37.0 g/dL LAB HEMETOLOGY METHOD 02/23/2024 9:55 AM [facility] RDW 13.2 11.0 - 15.0 % LAB HEMETOLOGY METHOD 02/23/2024 9:55 AM [facility] Platelets 443(H) 130 - 400 K/mcL LAB HEMETOLOGY METHOD 02/23/2024 9:55 AM [facility] MPV 9.4 7.0 - 11.0 FL LAB HEMETOLOGY METHOD 02/23/2024 9:55 AM [facility] NRBC 0.0 <1.0 % LAB HEMETOLOGY METHOD 02/23/2024 9:55 AM [facility] NRBC Absolute 0.00 <0.10 K/mcL LAB HEMETOLOGY METHOD 02/23/2024 9:55 AM [facility] Blood Venous blood specimen / Unknown Venipuncture / Unknown 02/23/2024 5:45 AM EST 02/23/2024 9:49 AM EST us Kumar Torres MD LAB BLOOD ORDERABLES Final Result [facility] [address] [place] [address], documented in this encounter Visit Diagnoses Diagnosis Nontoxic single thyroid nodule Nontoxic uninodular goiter Other testicular dysfunction Vitamin D deficiency, unspecified Age-related osteoporosis without current pathological fracture Type 2 diabetes mellitus without complications documented in this encounter Additional Health Concerns Infection Onset Date Last Indicated Resolved Time Respiratory Rule-Out 03/14/2024 03/14/2024 025 10:41 AM EST documented as of this encounter Care Teams Weir Fisher Relationship Specialty Start Date End Date Kumar Torres MD [address] [place] [id number] PCP - General Internal Medicine 03/08/24 documented as of this encounter
--- OUTSIDE RECORDS SUMMARY | 2024-05-20 09:56 | XMS_ITS | Patient Health Record ---
Author Organization [facility] Address [address] [place] [address] Care Team Providers Care Value Engineer Name Role Phone CASSIE DAWKINS Primary Care Provider Charly Olivares Unavailable [phone] Allergies Allergen (clinical drug ingredient) Drug/Non Drug [...] Problem Status W/U Status Risk Notes Problem 208488226 Encounter for screening for malignant neoplasm of colon (Z12.11) Active confirmed Problem 027659108 Family history of colon cancer (Z80.0) Active confirmed Problem 485663209 Long-term use of aspirin therapy (Z79.82) Active confirmed Plan Of Treatment Pending Test Test Name Order Date GI BIOPSY 08/03/2019 Future Test Test Name Order Date COLONOSCOPY 04/26/2019 Insurance Providers Payer Name Payer Address Payer Phone Subscriber Number Group Number Insured Name Patient Relationship to Insured Coverage Start Date Coverage End Date MEDICARE OF [place] [address] [place] [id number] [id number] ORQUIDEA MONCADA Self - patient is the insured MEDICAID OF [facility] [address] [place] [address] [id number] ORQUIDEA MONCADA Self - patient is the insured Medical (General) History Medical History History ICD Code NIDDM Hypertension Denies [place],,CVA,Lung disease,renal diseas e Back problems--compression fractures Hyperlipidemia Osteoporosis Surgical History Surgery Date(Month/Year) Partial thyroidectomy 2019 Right elbow surgery 2019 Lip surgery Cleft palate
--- OUTSIDE RECORDS SUMMARY | 2024-05-20 09:56 | XMS_ITS | Clinical Summary ---
Author Organization [address] Address [address] [place] [phone] Phone Care Team Providers Care Demo Specialist Name Role Phone Kumar Torres MD Primary Care Provider [phone]- [phone] Encounters Date Type Department Care Team Description 05/10/2024 Lab Requisition [facility] [address] [place] [phone] Kumar Torres MD Type 2 diabetes mellitus without complications (CMS/HCC); Hypothyroidism, unspecified; Anemia, unspecified 03/15/2024 Lab Requisition [facility] [address] [place] [phone] Kumar Torres MD Shortness of breath; Acute cough 02/22/2024 Lab Requisition [facility] [address] [place] [phone] Kumar Torres MD Nontoxic single thyroid nodule; [...] Td or Tdap) 06/15/2022 06/15/2012 COVID-19 Vaccine ( season) 2023 Influenza Vaccine (#1) 2023 6, 06/21/2015, 11/22/2013 Diabetes: Annual Urine Albumin-Creatinine Ratio (uACR) 08/18/2024 08/19/2023, 12/09/2022 Diabetes: Blood Sugar Control Test (HGBA1C) 08/22/2024 02/23/2024 Diabetes: Annual GFR (Glomerular Filtration Rate) 05/10/2025 05/10/2024, 02/23/2024, 08/19/2023, Additional history exists Hypertension/CHF/CAD Annual BMP Blood Test 05/10/2025 05/10/2024, 02/23/2024, 08/19/2023, Additional history exists Cholesterol Screening (Lipid Panel) 02/22/2029 02/23/2024 HIB [...] 20 months Aged Out No longer eligible based on patient's age to complete this topic Varicella Vaccines Aged Out No longer eligible based on patient's age to complete this topic Procedures Procedure Name Priority Date/Time Associated Diagnosis Comments THYROID STIMULATING HORMONE Routine 05/10/2024 8:42 AM EDT Type 2 diabetes mellitus without complications Hypothyroidism, unspecified Anemia, unspecified BASIC METABOLIC PANEL Routine 05/10/2024 8:42 AM EDT Type 2 diabetes mellitus without complications Hypothyroidism, unspecified Anemia, unspecified [id number], RSV, FLU A AND B QUALITATIVE RT-PCR, [...] without complications (CMS/HCC) from Last 3 Months Results * Thyroid stimulating hormone (05/10/2024 8:42 AM EDT) Pathologist [facility] TSH 1.66 0.40 - 4.00 mcIU/mL LAB CHEMISTRY METHOD 05/10/2024 1:58 PM EDT [facility] Blood Venous blood specimen / Unknown Venipuncture / Unknown 05/10/2024 8:42 AM EDT 05/10/2024 10:18 AM EDT Kumar Torres MD LAB BLOOD ORDERABLES Final Result [facility] [address] [place] [address], * (ABNORMAL) Basic metabolic panel (05/10/2024 8:42 AM EDT) Pathologist [facility] Sodium 129(L) 133 - 145 mmol/L LAB CHEMISTRY METHOD 05/10/2024 12:11 PM EDT [facility] Potassium 4.7 3.5 - 5.5 mmol/L LAB CHEMISTRY METHOD 05/10/2024 12:[address] [facility] Chloride 90(L) 96 - 110 mmol/L LAB CHEMISTRY METHOD 05/10/2024 12:[address] [facility] CO2 30 21 - 32 mmol/L LAB CHEMISTRY METHOD 05/10/2024 12:[address] [facility] Anion Gap 9 3 - 11 LAB CHEMISTRY METHOD 05/10/2024 12:[address] [facility] Glucose 144(H) 70 - 100 mg/dL LAB CHEMISTRY METHOD 05/10/2024 12:[address] [facility] BUN 9 5 - 25 mg/dL LAB CHEMISTRY METHOD 05/10/2024 12:[address] [facility] Creatinine 0.64(L) 0.70 - 1.30 mg/dL LAB CHEMISTRY METHOD 05/10/2024 12:[address] [facility] eGFR 110 >=60 mL/min/1. 73m2 LAB CHEMISTRY METHOD 05/10/2024 12:[address] [facility] Comment:Calculation based on the??Chronic Kidney Disease Epidemiology Collaboration (CKD-EPI) equation refit??without adjustment for race. BUN/Creatinine Ratio 14.1 LAB CHEMISTRY METHOD 05/10/2024 12:[address] [facility] Calcium 9.7 8.5 - 10.5 mg/dL LAB CHEMISTRY METHOD 05/10/2024 12:[address] [facility] Blood Venous blood specimen / Unknown Venipuncture / Unknown 05/10/2024 8:42 AM EDT 05/10/2024 10:18 AM EDT us Kumar Torres MD LAB BLOOD ORDERABLES Final Result [facility] [address] [place] [address], * [id number], RSV, Influenza A and B qualitative RT-PCR (03/14/2024 12:00 AM EST) Pathologist [facility] SARS COV-2 Not Detected Not Detected LAB MOLECULAR DIAGNOSTICS METHOD 03/15/2024 10:41 AM EST [facility] Comment: Disclaimer: The manner in which this information is used to guide patient care is the responsibility of the healthcare provider. Testing was performed using the [employer] m SARS-CoV-2 test. This test has been [...] for Healthcare Providers can be found at: https://www.fda.gov/media/275428/download Fact sheet for Patients can be found at: https://www.fda.gov/media/281403/download Influenza A PCR Not Detected Not Detected LAB MOLECULAR DIAGNOSTICS METHOD 03/15/2024 10:41 AM EST [facility] Influenza B PCR Not Detected Not Detected LAB MOLECULAR DIAGNOSTICS METHOD 03/15/2024 10:41 AM EST [facility] RSV PCR Not Detected Not Detected LAB MOLECULAR DIAGNOSTICS METHOD 03/15/2024 10:41 AM [facility] Swab Nasopharyngeal structure / Unknown 03/14/2024 03/15/2024 8:19 AM EST Kumar Torres MD LAB MICROBIOLOGY - GENERAL ORDERABLES Final Result [facility] [address] [place] [address], * Testosterone, free (02/23/2024 5:45 AM EST) Pathologist [facility] Testosterone Free 34.6 pg/mL 025 4:04 PM EST [facility] Comment: No reference range available for males under 20 years or over 50 years. Test performed at [facility], [address], [place], [place] ??[address] ? [phone] Juany Boogie MD, PhD - Materials Recycler Blood Venous blood specimen / Unknown Venipuncture / Unknown 02/23/2024 5:45 AM EST 02/23/2024 9:48 AM EST us Kumar Torres MD LAB BLOOD ORDERABLES Final Result [facility] [address] [place] [address] * Lipid panel with reflex to direct LDL (02/23/2024 5:45 AM EST) Pathologist [facility] Cholesterol 103 0 - 200 mg/dL LAB CHEMISTRY METHOD 02/23/2024 10:25 AM [facility] Triglycerides 69 0 - 150 mg/dL LAB CHEMISTRY METHOD 02/23/2024 10:25 AM [facility] HDL 40 >=40 mg/dL LAB CHEMISTRY METHOD 02/23/2024 10:25 AM [facility] LDL Calculated 49 0 - 100 mg/dL LAB CHEMISTRY METHOD 02/23/2024 10:25 AM [facility] VLDL Cholesterol Francesco 13.8 mg/dL LAB CHEMISTRY METHOD 02/23/2024 10:25 AM [facility] Non HDL Chol. (LDL+VLDL) 63 <145 mg/dL LAB CHEMISTRY METHOD 02/23/2024 10:25 AM [facility] Chol/HDL Ratio 2.6 0.0 - 4.4 LAB CHEMISTRY METHOD 02/23/2024 10:25 AM [facility] Blood Venous blood specimen / Unknown Venipuncture / Unknown 02/23/2024 5:45 AM EST 02/23/2024 9:48 AM EST Kumar Torres MD LAB BLOOD ORDERABLES Final Result [facility] [address] [place] [address], [place] [phone] * Collagen type 1, c-telopeptide (02/23/2024 5:45 AM EST) Pathologist [facility] Collagen Type 1, C-Telopeptide (CTx) 59 pg/mL 02/26/2024 3:14 PM EST [facility] Comment: Reference Range for Males 18-30 years ? 72-1395 pg/mL 31-50 years ? 46-787 pg/mL 51-70 years ? 34-896 pg/mL >70 years ? Not Established Test performed at [facility], [address] [place], [place] ??[address] ? [phone] Juany Boogie MD, PhD - Materials Recycler Blood Venous blood specimen / Unknown 02/23/2024 5:45 AM EST 02/23/2024 10:45 AM EST Kumar Torres MD LAB BLOOD ORDERABLES Final Result [facility] [address] [place] [address] * Vitamin D 25 hydroxy (02/23/2024 5:45 AM EST) Pathologist [facility] Vit D, 25-Hydroxy 38.8 30.0 - 80.0 ng/mL LAB CHEMISTRY METHOD 02/23/2024 10:30 AM EST [facility] Blood Venous blood specimen / Unknown Venipuncture / Unknown 02/23/2024 5:45 AM EST 02/23/2024 9:48 AM EST us Kumar Torres MD LAB BLOOD ORDERABLES Final Result [facility] [address] [place] [address], * (ABNORMAL) Complete blood count (02/23/2024 5:45 AM EST) WBC 8.4 4.8 - 10.8 K/mcL LAB HEMETOLOGY METHOD 02/23/2024 9:55 AM EST [facility] RBC 4.70 4.50 - 5.50 M/mcL LAB HEMETOLOGY METHOD 02/23/2024 9:55 AM [facility] Hemoglobin 13.0(L) 13.5 - 17.5 g/dL LAB HEMETOLOGY METHOD 02/23/2024 9:55 AM [facility] Hematocrit 41.2(L) 42.0 - 54.0 % LAB HEMETOLOGY METHOD 02/23/2024 9:55 AM EST [facility] MCV 88.6 79.0 - 98.0 FL LAB HEMETOLOGY METHOD 02/23/2024 9:55 AM EST [facility] MCH 28.0 27.0 - 32.0 pcg LAB HEMETOLOGY METHOD 02/23/2024 9:55 AM [facility] MCHC 31.6(L) 32.0 - 37.0 g/dL LAB HEMETOLOGY METHOD 02/23/2024 9:55 AM EST [facility] RDW 13.2 11.0 - 15.0 % LAB HEMETOLOGY METHOD 02/23/2024 9:55 AM [facility] Platelets 443(H) 130 - 400 K/mcL LAB HEMETOLOGY METHOD 02/23/2024 9:55 AM [facility] MPV 9.4 7.0 - 11.0 FL LAB HEMETOLOGY METHOD 02/23/2024 9:55 AM EST [facility] NRBC 0.0 <1.0 % LAB HEMETOLOGY METHOD 02/23/2024 9:55 AM EST [facility] NRBC Absolute 0.00 <0.10 K/mcL LAB HEMETOLOGY METHOD 02/23/2024 9:55 AM EST [facility] Blood Venous blood specimen / Unknown Venipuncture / Unknown 02/23/2024 5:45 AM EST 02/23/2024 9:49 AM EST us Kumar Torres MD LAB BLOOD ORDERABLES Final Result [facility] [address] [place] [address], [place] [phone] * (ABNORMAL) Testosterone, total (02/23/2024 5:45 AM EST) Pathologist [facility] Testosterone 1,247(H) 229 - 902 ng/dL LAB CHEMISTRY METHOD 02/23/2024 10:32 AM EST [facility] Blood Venous blood specimen / Unknown Venipuncture / Unknown 02/23/2024 5:45 AM EST 02/23/2024 9:48 AM EST us Kumar Torres MD LAB BLOOD ORDERABLES Final Result [facility] [address] [place] [address], [place] [phone] * (ABNORMAL) Hemoglobin A1c (02/23/2024 5:45 AM EST) Pathologist [facility] Hemoglobin A1C 7.1(H) <6.5 % LAB CHEMISTRY METHOD 02/23/2024 11:53 AM EST [facility] Mean Bld Glu Estim. 157 mg/dL LAB CHEMISTRY METHOD 02/23/2024 11:53 AM EST [facility] Blood Venous blood specimen / Unknown Venipuncture / Unknown 02/23/2024 5:45 AM EST 02/23/2024 9:49 AM EST us Kumar Torres MD LAB BLOOD ORDERABLES Final Result Performing Organization Address [facility]/ZIP Co de Phone Number [facility] [address] [place] [address], [place] [phone] * (ABNORMAL) Vitamin B12 (02/23/2024 5:45 AM EST) [facility] Vitamin B-12 1,291(H) 250 - 900 pcg/mL LAB CHEMISTRY METHOD 02/23/2024 10:47 AM EST [facility] Blood Venous blood specimen / Unknown Venipuncture / Unknown 02/23/2024 5:45 AM EST 02/23/2024 9:48 AM EST us Kumar Torres MD LAB BLOOD ORDERABLES Final Result Performing Organization Address [facility]/ZIP Co de Phone Number [facility] [address] [place] [address], [place] [phone] * (ABNORMAL) Comprehensive metabolic panel (02/23/2024 5:45 AM EST) [facility] Sodium 125(L) 133 - 145 mmol/L LAB CHEMISTRY METHOD 02/23/2024 10:25 AM EST [facility] Potassium 5.3 3.5 - 5.5 mmol/L LAB CHEMISTRY METHOD 02/23/2024 10:25 AM EST [facility] Chloride 91(L) 96 - 110 mmol/L LAB CHEMISTRY METHOD 02/23/2024 10:25 AM EST [facility] CO2 30 21 - 32 mmol/L LAB CHEMISTRY METHOD 02/23/2024 10:25 AM EST [facility] Anion Gap 4 3 - 11 LAB CHEMISTRY METHOD 02/23/2024 10:25 AM EST [facility] Glucose 116(H) 70 - 100 mg/dL LAB CHEMISTRY METHOD 02/23/2024 10:25 AM [facility] BUN 6 5 - 25 mg/dL LAB CHEMISTRY METHOD 02/23/2024 10:25 AM [facility] Creatinine 0.72 0.70 - 1.30 mg/dL LAB CHEMISTRY METHOD 02/23/2024 10:25 AM [facility] eGFR 107 >=60 mL/min/1. 73m2 LAB CHEMISTRY METHOD 02/23/2024 10:25 AM [facility] Comment:Calculation based on the??Chronic Kidney Disease Epidemiology Collaboration (CKD-EPI) equation refit??without adjustment for race. BUN/Creatinine Ratio 8.3 LAB CHEMISTRY METHOD 02/23/2024 10:25 AM [facility] Calcium 9.1 8.5 - 10.5 mg/dL LAB CHEMISTRY METHOD 02/23/2024 10:25 AM [facility] AST (SGOT) 15 10 - 42 unit/L LAB CHEMISTRY METHOD 02/23/2024 10:25 AM [facility] ALT (SGPT) 19 10 - 60 unit/L LAB CHEMISTRY METHOD 02/23/2024 10:25 AM [facility] Alkaline Phosphatase 73 42 - 121 unit/L LAB CHEMISTRY METHOD 02/23/2024 10:25 AM [facility] Total Protein 7.1 6.0 - 8.0 g/dL LAB CHEMISTRY METHOD 02/23/2024 10:25 AM [facility] Albumin 3.7 3.2 - 5.0 g/dL LAB CHEMISTRY METHOD 02/23/2024 10:25 AM [facility] Total Bilirubin 0.5 0.0 - 1.4 mg/dL LAB CHEMISTRY METHOD 02/23/2024 10:25 AM [facility] Blood Venous blood specimen / Unknown Venipuncture / Unknown 02/23/2024 5:45 AM EST 02/23/2024 9:48 AM EST us Kumar Torres MD LAB BLOOD ORDERABLES Final Result [facility] [address] [place] [address], [place] [phone] from Last 3 Months Insurance MEDICAID - [place] Member Subscriber Plan / Payer (Ef fective 2024-Present) Name:Star Agrawal Relation to Subscriber:Self Name:Star Agrawal Payer ID:[id number] Group ID:Not on file Type:Not on file Address: [facility] ATTN:[employer] [address] [place] [address] [employer] MED[employer]ARE ADVANTAGE Care Teams Demo Specialist Relationship Specialty Start Date End Date Kumar Torres MD [address] [place] [address] PCP - General Internal Medicine 03/08/24
--- OUTSIDE RECORDS SUMMARY | 2024-05-20 09:56 | XMS_ITS | Encounter Summary ---
Author Organization [facility] Address [address] [place] [address] Care Team Providers Care Grocery Store Clerk Name Role Phone Kumar Torres MD Primary Care Provider [phone]- [phone] Encounter Details Date Type Department Care Team (Late st Contact Info) Description 05/10/[address] [facility] [address] [facility] [place] [address] Kumar Torres MD [address] [place], [place] [id number] Type 2 diabetes mellitus without complications (CMS/HCC); Hypothyroidism, unspecified; Anemia, unspecified Social History Tobacco Use Types Packs/Day Years [...] mellitus without complications Hypothyroidism, unspecified Anemia, unspecified documented in this encounter Results * Thyroid stimulating hormone (05/10/2024 8:42 AM EDT) TSH 1.66 0.40 - 4.00 mcIU/mL LAB CHEMISTRY METHOD [facility] Blood Venous blood specimen / Unknown Venipuncture / Unknown 05/10/2024 8:42 AM EDT 05/10/2024 10:18 AM EDT us Kumar Torres MD LAB BLOOD ORDERABLES Final Result [facility] [address] [place] [address], * (ABNORMAL) Basic metabolic panel (05/10/2024 8:42 AM EDT) Sodium 129(L) 133 - 145 mmol/L LAB CHEMISTRY METHOD 05/10/2024 12:11 PM [facility] Potassium 4.7 3.5 - 5.5 mmol/L LAB CHEMISTRY METHOD 05/10/2024 12:11 PM [facility] Chloride 90(L) 96 - 110 mmol/L LAB CHEMISTRY METHOD 05/10/2024 12:11 PM [facility] CO2 30 21 - 32 mmol/L LAB CHEMISTRY METHOD 05/10/2024 12:11 PM [facility] Anion Gap 9 3 - 11 LAB CHEMISTRY METHOD 05/10/2024 12:11 PM [facility] Glucose 144(H) 70 - 100 mg/dL LAB CHEMISTRY METHOD 05/10/2024 12:11 PM [facility] BUN 9 5 - 25 mg/dL LAB CHEMISTRY METHOD 05/10/2024 12:11 PM [facility] Creatinine 0.64(L) 0.70 - 1.30 mg/dL LAB CHEMISTRY METHOD 05/10/2024 12:11 PM [facility] eGFR 110 >=60 mL/min/1. 73m2 LAB CHEMISTRY METHOD 05/10/2024 12:11 PM [facility] Comment:Calculation based on the??Chronic Kidney Disease Epidemiology Collaboration (CKD-EPI) equation refit??without adjustment for race. BUN/Creatinine Ratio 14.1 LAB CHEMISTRY METHOD 05/10/2024 12:[address] [facility] Calcium 9.7 8.5 - 10.5 mg/dL LAB CHEMISTRY METHOD 05/10/2024 12:[address] [facility] Blood Venous blood specimen / Unknown Venipuncture / Unknown 05/10/2024 8:42 AM EDT 05/10/2024 10:18 AM EDT us Kumar Torres MD LAB BLOOD ORDERABLES Final Result [facility] [address] [place] [address], documented in this encounter Visit Diagnoses Diagnosis Type 2 diabetes mellitus without complications Hypothyroidism, unspecified Anemia, unspecified documented in this encounter Care Teams Grocery Store Clerk Relationship Specialty Start Date End Date Kumar Torres MD [address] [place] [address] PCP - General Internal Medicine 03/08/24 documented as of this encounter
[2024-05-20 10:18] LABS: MANUAL DIFF FLAG NO
[2024-05-20 10:27] LABS: Basophils Absolute Auto 0.1 X10*3/uL (0.0-0.2); Basophils Percent Auto 1.1 % (0-2); Eosinophils Absolute Auto 0.3 X10*3/uL (0.0-0.4); Eosinophils Percent Auto 4.5 % (0-4); Hematocrit 38.3 % (42.0-52.0); Hemoglobin 12.7 g/dl (14.0-18.0); Imm Gran Abs Auto 0.03 X10*3/uL (0.00-0.03); Imm Gran Pct Auto 0.5 % (0.0-0.4); Lymphocytes Absolute Auto 1.6 X10*3/uL (1.2-4.9); Lymphocytes Percent Auto 24.6 % (20-40); Mean Corpuscular HGB Conc 33.2 g/dl (31.0-36.0); Mean Corpuscular Hemoglobin 28.4 pg (27.0-33.0); Mean Corpuscular Volume 85.7 fL (80.0-98.0); Mean Platelet Volume 8.8 fL (9.4-12.4); Monocytes Absolute Auto 0.5 X10*3/uL (0.1-1.2); Monocytes Percent Auto 8.4 % (2-11); Neutrophils Absolute Auto 3.9 x10*3/uL (2.0-8.3); Neutrophils Percent Auto 60.9 % (45-73); Platelet Count 302 X10*3/uL (160-400); Red Blood Count 4.47 X10*6/uL (4.60-5.80); Red Cell Distribution Width 14.5 % (11.0-16.0); White Blood Count 6.4 X10*3/uL (4.8-10.8)
[2024-05-20 10:29] LABS: Prothrombin Time 11.7 SEC (10.9-12.4)
--- NOTE | 2024-05-20 10:51 | ED.LOWEXIN ---
HPI - Extremity Injury (Lower) General Chief Complaint: Extremity Injury, Lower Stated Complaint: blister foot Time Seen by Provider: 05/20/24 09:03 Source: patient, EMS, RN notes reviewed and old records reviewed Mode of arrival: EMS History of Present Illness ED Provider: Mercedes Gallegos PA-C HPI Narrative: 58-year-old male with a past medical history of GERD, diabetes, HLD, HTN, presenting to the ED via EMS from [facility] complaining of bleeding blister to right foot s/p hitting while putting socks/shoes on this morning. Reports chronic blood blister to area x few months. States area was bleeding for a few minutes prior to home calling EMS. Admits to taking baby ASA. Denies lightheadedness/dizziness, trauma/falls Related Data Home Medications ?Medication ?Instructions ?Recorded ?Confirmed alendronate 70 mg tablet 70 mg PO QWEEK 01/20/24 aspirin 81 mg tablet,delayed 81 mg PO DAILY 01/20/24 release calcium carbonate (Calcium Antacid) mg PO 01/20/24 cholecalciferol (vitamin D3) 1,250 PO 01/20/24 mcg (50,000 unit) capsule cyanocobalamin (vitamin B-12) 1,000 mcg PO DAILY 01/20/24 1,000 mcg tablet (Vitamin B-12) duloxetine 30 mg capsule,delayed 30 mg PO DAILY 01/20/24 release glipizide 2.5 mg tablet, extended 2.5 mg PO DAILY 01/20/24 release 24 hr lisinopril 40 mg tablet 40 mg PO DAILY 01/20/24 metformin 1,000 mg tablet 1,000 mg PO BID 01/20/24 metoprolol tartrate 100 mg tablet mg PO 01/20/24 omeprazole 20 mg capsule,delayed 20 mg PO DAILY 01/20/24 release testosterone cypionate 200 mg/mL mg IM 01/20/24 intramuscular oil atorvastatin 10 mg tablet mg PO DAILY 05/06/24 Allergies Allergy/AdvReac Type Severity Reaction Status Date / Time Penicillins [PENICILLINS] Allergy Intermediate rash/hives Verified 05/20/24 09:01 Review of Systems Review of Systems: Yes all other systems are reviewed and are negative Constitutional: Constitutional: Reports as per [facility] Past Medical History Attestation statement: The following information was validated with the patient. Source: old records reviewed Medical History Diverticulosis Resides in senior facility GERD (gastroesophageal reflux disease) Diabetes Hyperlipidemia HTN (hypertension) Surgical History History of open reduction and internal fixation (ORIF) procedure H/O colonoscopy (~2019) Family History Family History Mother Colon abnormality Leukemia Maternal Aunt Colon cancer Social History Social History Alcohol intake: never Patient Tobacco Use Status: Never used Tobacco Smoked in Last 30 Days: No Use of substances other than those prescribed or required for medical reasons: No Advance Directives: Yes Advance Directives Information Provided: Yes Advance Directives on File: No Physical Exam Vital Signs: Vital Signs: Last Vital Signs Temp 93.9 F L 05/20/24 11:10 Pulse 63 05/20/24 11:10 Resp 16 05/20/24 11:10 BP 162/99 H 05/20/24 11:10 Pulse Ox 99 05/20/24 11:10 O2 Del Method Room Air 05/20/24 11:10 BMI result Body Mass Index 31.3 Const: General: cooperative, healthy appearing and no acute distress Orientation/consciousness: patient oriented x3 Limitations: no limitations HEENT: Head: Yes normal to inspection and Yes atraumatic Ears: hearing grossly normal bilaterally General nose exam: Normal external nose present Face and sinus: Yes normal facial exam Eyes: General: appearance normal, both eyes and all related structures EOM: EOMs intact bilaterally Neck: Neck: Yes normal visual inspection and Yes no meningeal signs Resp: Effort & Inspection: normal respiratory effort and no respiratory distress Cardio: Rate: regular rate Skin: Other: Superficial blister/scab noted to dorsal aspect right foot without active bleeding. Nontender. Neurovascularly intact. No erythema/ecchymosis Rashes: no rashes Wounds: no wounds Neuro: General: patient oriented x3, tone normal and no meningeal signs Cranial nerves: Yes CN's II-XII intact bilaterally Gait exam (Neuro): Normal gait present Extrem: General: Yes normal to inspection Course Course Course Narrative: 1104--patient has been observed and re-evaluate as in the ED for 2 hours and 15 minutes without recurrence of bleeding. Dressing applied. Patient is safe for discharge back to facility -blood pressure improved after home medications administered Results discussed with patient including worrisome signs and symptoms and strict return precautions, and when to return to the emergency department. They verbalized understanding and feel safe for discharge at this time. Medications Administered Discontinued Medications Generic Name Dose Route Start Last Admin Trade Name Sundarq PRN Reason Stop Dose Admin Lisinopril 40 mg 05/20/24 09:37 05/20/24 09:44 Lisinopril 40 Mg Tablet PO 05/20/24 09:38 40 mg ONCE ONE Administration Protocol Metoprolol Tartrate 100 mg 05/20/24 09:37 05/20/24 09:44 Metoprolol Tartrate 100 Mg Tablet PO 05/20/24 09:38 100 mg ONCE ONE Administration Protocol Medical Decision Making Medical Decision Making [facility] Narrative: 58-year-old male with a past medical history of GERD, diabetes, HLD, HTN, presenting to the ED via EMS from [facility] complaining of bleeding blister to right foot s/p hitting while putting socks/shoes on this morning. On exam hypertensive, denies taking BP medication this morning, NAD, nontoxic appearing, wound noted to right foot as depicted above without active bleeding. Dressing removed, we will continue to monitor. Lower suspicion for anemia / cellulitis Plan: Labs, observe and re-evaluate Please refer to course for remaining clinical decision making, interpretation of labs/imaging results, and discussions with consultants and/or family members. Differential Diagnosis Differential Diagnoses: The differential diagnosis associated with the presentation includes As above Admission/Observation Consideration of admission/observation: Escalation of care including admission/observation considered Lab Data [facility] Lab Attestation statement: I reviewed the patient's lab results. 05/20/24 10:09 Labs: Lab Results 05/20/24 Range/Units 10:09 WBC 6.4 (4.8-10.8) X10*3/uL RBC 4.47 L (4.60-5.80) X10*6/uL Hgb 12.7 L (14.0-18.0) g/dl Hct 38.3 L (42.0-52.0) % MCV 85.7 (80.0-98.0) fL MCH 28.4 (27.0-33.0) pg MCHC 33.2 (31.0-36.0) g/dl RDW 14.5 (11.0-16.0) % Plt Count 302 (160-400) X10*3/uL MPV 8.8 L (9.4-12.4) fL Immature Gran % (Auto) 0.5 H (0.0-0.4) % Neut % (Auto) 60.9 (45-73) % Lymph % (Auto) 24.6 (20-40) % Mitchell % (Auto) 8.4 (2-11) % Eos % (Auto) 4.5 H (0-4) % Baso % (Auto) 1.1 (0-2) % Lymph # (Auto) 1.6 (1.2-4.9) X10*3/uL Mitchell # (Auto) 0.5 (0.1-1.2) X10*3/uL Eos # (Auto) 0.3 (0.0-0.4) X10*3/uL Baso # (Auto) 0.1 (0.0-0.2) X10*3/uL Abs Immat Gran (auto) 0.03 (0.00-0.03) X10*3/uL Absolute Neuts (auto) 3.9 (2.0-8.3) x10*3/uL Absolute Nucleated RBC 0.000 (0.0-0.012) X10*3/uL Nucleated RBC % (auto) 0.0 (0.0-0.2) /100WBC PT 11.7 (10.9-12.4) SEC INR 1.0 (0.9-1.1) Radiology Impression Discussion of test interpretation with radiology: I have reviewed the radiologist's reading. Independent Historian Clinical information obtained from an independent historian. History obtained from or confirmed by: EMS External Record Review External record reviewed: Inpatient record, Office record, Outpatient record, Prior outpatient labs, Prior outpatient radiology, Primary care record and Outside ED record Tests considered The following testing was considered but not selected: As above Chronic Conditions Patient?s care impacted by: Other Social Determinants Patient?s care significantly limited by Social Determinants of Health including: Problems related to primary support group and Other Social Determinant of Health Discharge Plan Discharge Clinical Impression: Bleeding from wound Patient Disposition: er [facility] Prescriptions: No Action duloxetine 30 mg capsule,delayed release(DR/EC) 30 mg PO DAILY omeprazole 20 mg capsule,delayed release(DR/EC) 20 mg PO DAILY testosterone cypionate 200 mg/mL oil IM metformin 1,000 mg tablet 1,000 mg PO BID glipizide 2.5 mg tablet extended release 24hr 2.5 mg PO DAILY lisinopril 40 mg tablet 40 mg PO DAILY alendronate 70 mg tablet 70 mg PO QWEEK metoprolol tartrate 100 mg tablet PO cholecalciferol (vitamin D3) 1,250 mcg (50,000 unit) capsule PO calcium carbonate [Calcium Antacid] 200 mg calcium (500 mg) tablet,chewable PO cyanocobalamin (vitamin B-12) [Vitamin B-12] 1,000 mcg tablet 1,000 mcg PO DAILY aspirin 81 mg tablet,delayed release (DR/EC) 81 mg PO DAILY atorvastatin 10 mg tablet PO DAILY Print Language: French
[2024-05-20 11:10] VITALS: BP 162/99; PULSE 63; RESP 16; TEMP 36.6; O2SAT 99
[2024-05-20 12:50] VITALS: BP 162/99; PULSE 63; RESP 16; TEMP 36.6; O2SAT 99
== END 2024-05-20 12:51 | disposition skilled nursing facility (03) ==
PROVIDERS: Physician Assistant; Emergency Provider Emergency Medicine; PCP Internal Medicine
DX: S90.821A Blister (nonthermal), right foot, initial encounter (principal); I10 Essential (primary) hypertension; X58.XXXA Exposure to other specified factors, initial encounter; Y93.9 Activity, unspecified; Y92.9 Unspecified place or not applicable; Y99.8 Other external cause status; Z79.899 Other long term (current) drug therapy; Z51.81 Encounter for therapeutic drug level monitoring
CPT/HCPCS: 36415; 85025; 85610; 99283; 99284

== ENCOUNTER 2024-06-19 10:10 | Emergency (ER) | payer MEDICARE, MEDICAID, SELFPAY ==
[2024-06-19 10:32] VITALS: BP 142/90; PULSE 70; RESP 18; TEMP 35.8; O2SAT 97; BMI 28.5
--- OUTSIDE RECORDS SUMMARY | 2024-06-19 10:52 | XMS_ITS | Clinical Summary ---
Author Organization [address] Address [address] [place] [phone] Phone Care Team Providers Care Private Duty Aide Name Role Phone Kumar Torres MD Primary Care Provider [phone]- [phone] Encounters Date Type Department Care Team Description 05/10/2024 Lab Requisition [facility] - Main Lab [address] [facility] [place] [address] Kumar Torres MD Type 2 diabetes mellitus without complications (CMS/HCC V24, CMS/HCC V28); Hypothyroidism, unspecified; Anemia, unspecified from Last 3 Months Social History Tobacco [...] 06/15/2022 06/15/2012 COVID-19 Vaccine ( season) 2023 Diabetes: Annual Urine Albumin-Creatinine Ratio (uACR) 08/18/2024 08/19/2023, 12/09/2022 Diabetes: Blood Sugar Control Test (HGBA1C) 08/22/2024 02/23/2024 Influenza Vaccine (Season Ended) 2024 12/04/2015, 06/21/2015, 11/22/2013 Diabetes: Annual GFR (Glomerular Filtration Rate) 05/10/2025 [...] age to complete this topic Meningococcal B Vaccine Aged Out No l onger eligible based on patient's age to complete [...] mellitus without complications Hypothyroidism, unspecified Anemia, unspecified HEMOGLOBIN A1C Routine 02/23/2024 5:45 AM EST [...] without complications (CMS/HCC) from Last 3 Months or Most Recently Relevant to Health Maintenance Results * Thyroid stimulating hormone (05/10/2024 8:42 AM EDT) TSH 1.66 0.40 - 4.00 mcIU/mL LAB CHEMISTRY METHOD 05/10/2024 1:58 PM EDT [facility] Blood Venous blood specimen / Unknown Venipuncture / Unknown 05/10/2024 8:42 AM EDT 05/10/2024 10:18 AM EDT Kumar Torres MD LAB BLOOD ORDERABLES Final Result [facility] [address] [place] [address], * (ABNORMAL) Basic metabolic panel (05/10/2024 8:42 AM EDT) Sodium 129(L) 133 - 145 mmol/L LAB CHEMISTRY METHOD 05/10/2024 12:11 PM EDT [facility] Potassium 4.7 3.5 - 5.5 mmol/L LAB CHEMISTRY METHOD 05/10/2024 12:11 PM EDT [facility] Chloride 90(L) 96 - 110 mmol/L LAB CHEMISTRY METHOD 05/10/2024 12:11 PM EDT [facility] CO2 30 21 - 32 mmol/L LAB CHEMISTRY METHOD 05/10/2024 12:11 PM EDT [facility] Anion Gap 9 3 - 11 LAB CHEMISTRY METHOD 05/10/2024 12:11 PM EDT [facility] Glucose 144(H) 70 - 100 mg/dL LAB CHEMISTRY METHOD 05/10/2024 12:11 PM EDT [facility] BUN 9 5 - 25 mg/dL LAB CHEMISTRY METHOD 05/10/2024 12:11 PM [facility] Creatinine 0.64(L) 0.70 - 1.30 mg/dL LAB CHEMISTRY METHOD 05/10/2024 12:11 PM EDT [facility] eGFR 110 >=60 mL/min/1. 73m2 LAB CHEMISTRY METHOD 05/10/2024 12:11 PM EDT [facility] Comment:Calculation based on the??Chronic Kidney Disease Epidemiology Collaboration (CKD-EPI) equation refit??without adjustment for race. BUN/Creatinine Ratio 14.1 LAB CHEMISTRY METHOD 05/10/2024 12:11 PM T [facility] Calcium 9.7 8.5 - 10.5 mg/dL LAB CHEMISTRY METHOD 05/10/2024 12:11 PM T [facility] Blood Venous blood specimen / Unknown Venipuncture / Unknown 05/10/2024 8:42 AM EDT 05/10/2024 10:18 AM EDT Kumar Torres MD LAB BLOOD ORDERABLES Final Result [facility] [address] [place] [address], * Lipid panel with reflex to direct LDL (02/23/2024 5:45 AM EST) Cholesterol 103 0 - 200 mg/dL LAB CHEMISTRY METHOD 02/23/2024 10:25 AM EST [facility] Triglycerides 69 0 - 150 mg/dL LAB CHEMISTRY METHOD 02/23/2024 10:25 AM EST [facility] HDL 40 >=40 mg/dL LAB CHEMISTRY METHOD 02/23/2024 10:25 AM EST [facility] LDL Calculated 49 0 - 100 mg/dL LAB CHEMISTRY METHOD 02/23/2024 10:25 AM [facility] VLDL Cholesterol Francesco 13.8 mg/dL LAB CHEMISTRY METHOD 02/23/2024 10:25 AM [facility] Non HDL Chol. (LDL+VLDL) 63 <145 mg/dL LAB CHEMISTRY METHOD 02/23/2024 10:25 AM [facility] Chol/HDL Ratio 2.6 0.0 - 4.4 LAB CHEMISTRY METHOD 02/23/2024 10:25 AM [facility] Blood Venous blood specimen / Unknown Venipuncture / Unknown 02/23/2024 5:45 AM EST 02/23/2024 9:48 AM EST us Kumar Torres MD LAB BLOOD ORDERABLES Final Result [facility] [address] [place] [address], [place] [phone] * (ABNORMAL) Hemoglobin A1c (02/23/2024 5:45 AM EST) Hemoglobin A1C 7.1(H) <6.5 % LAB CHEMISTRY METHOD 02/23/2024 11:53 AM EST [facility] Mean Bld Glu Estim. 157 mg/dL LAB CHEMISTRY METHOD 02/23/2024 11:53 AM EST [facility] Blood Venous blood specimen / Unknown Venipuncture / Unknown 02/23/2024 5:45 AM EST 02/23/2024 9:49 AM EST us Kumar Torres MD LAB BLOOD ORDERABLES Final Result Performing Organization Address City/[facility]/ZIP Co de Phone Number [facility] [address] [place] [address], [place] [phone] from Last 3 Months or Most Recently Relevant to Health Maintenance Insurance [place] [employer] MED[place]ANTAGE Care Teams Private Duty Aide Relationship Specialty Start Date End Date Kumar Torres MD [address] [place] [address] PCP - General Internal Medicine 03/08/24
--- OUTSIDE RECORDS SUMMARY | 2024-06-19 10:52 | XMS_ITS | Encounter Summary ---
Author Organization [facility] Address [address] [place] [address] Care Team Providers Care Medical Support Specialist Name Role Phone Kumar Torres MD Primary Care Provider [phone]- [phone] Encounter Details Date Type Department Care Team (Late st Contact Info) Description 03/15/2024 Lab Requisition [facility] - Main Lab [address] [place] [address] Kumar Torres MD [address] [place], [place] [id number] Shortness of breath; Acute cough Social History [...] Procedure Name Priority Date/Time Associated Diagnosis Comments [id number], RSV, FLU A AND B QUALITATIVE RT-PCR, LOCAL REFERENCE LAB Routine 03/14/2024 12:00 AM EST Shortness of breath Acute cough documented in this encounter Results * [id number], RSV, Influenza A and B qualitative RT-PCR (03/14/2024 12:00 AM EST) SARS COV-2 Not Detected Not Detected LAB MOLECULAR DIAGNOSTICS METHOD 03/15/2024 10:41 AM EST [facility] ([facility]) [facility] Comment: Disclaimer: The manner in [...] for Healthcare Providers can be found at: https://www.fda.gov/media/087296/download Fact sheet for Patients can be found at: https://www.fda.gov/media/419115/download Influenza A PCR Not Detected Not Detected LAB MOLECULAR DIAGNOSTICS METHOD 03/15/2024 10:41 AM EST [facility] Influenza B PCR Not Detected Not Detected LAB MOLECULAR DIAGNOSTICS METHOD 03/15/2024 10:41 AM EST [facility] RSV PCR Not Detected Not Detected LAB MOLECULAR DIAGNOSTICS METHOD 03/15/2024 10:41 AM EST [facility] Swab Nasopharyngeal structure / Unknown 03/14/2024 03/15/2024 8:19 AM EST us Kumar Torres MD LAB MICROBIOLOGY - GENERAL ORDERABLES Final Result [facility] [address] [place] [address], documented in this encounter Visit Diagnoses Diagnosis Shortness of breath Acute cough documented in this encounter Additional Health Concerns Infection Onset Date Last Indicated Resolved Time Respiratory Rule-Out 03/14/2024 03/14/2024 025 10:41 AM EST documented as of this encounter Care Teams Medical Support Specialist Relationship Specialty Start Date End Date Kumar Torres MD [address] [place] [id number] PCP - General Internal Medicine 03/08/24 documented as of this encounter
--- OUTSIDE RECORDS SUMMARY | 2024-06-19 10:52 | XMS_ITS | Encounter Summary ---
Author Organization [facility] Address [address] [place] [address] Care Team Providers Care Cigarette Tipper Name Role Phone Kumar Torres MD Primary Care Provider +1- [phone] Encounter Details Date Type Department Care Team (Late st Contact Info) Description 05/10/2024 Lab Requisition [facility] - Main Lab [address] [facility] [place] [place] [address] Kumar Torres MD [address] [place], [place] [phone] Type 2 diabetes mellitus without complications (CMS/HCC V24, CMS/HCC V28); Hypothyroidism, unspecified; Anemia, unspecified Social History Tobacco [...] LAB CHEMISTRY METHOD 05/10/2024 1:58 PM EDT [facility] Blood Venous blood specimen / Unknown Venipuncture / Unknown 05/10/2024 8:42 AM EDT 05/10/2024 10:18 AM EDT us Kumar Torres MD LAB BLOOD ORDERABLES Final Result [facility] [address] [place] [address], * (ABNORMAL) Basic metabolic panel (05/10/2024 8:42 AM EDT) Sodium 129(L) 133 - 145 mmol/L LAB CHEMISTRY METHOD 05/10/2024 12:11 PM [facility] Potassium 4.7 3.5 - 5.5 mmol/L LAB CHEMISTRY METHOD 05/10/2024 12:11 PM [facility] Chloride 90(L) 96 - 110 mmol/L LAB CHEMISTRY METHOD 05/10/2024 12:11 PM [facility] CO2 30 21 - 32 mmol/L LAB CHEMISTRY METHOD 05/10/2024 12:11 PM [facility] Anion Gap 9 3 - 11 LAB CHEMISTRY METHOD 05/10/2024 12:11 PM [facility] Glucose 144(H) 70 - 100 mg/dL LAB CHEMISTRY METHOD 05/10/2024 12:11 PM [facility] BUN 9 5 - 25 mg/dL LAB CHEMISTRY METHOD 05/10/2024 12:11 PM [facility] Creatinine 0.64(L) 0.70 - 1.30 mg/dL LAB CHEMISTRY METHOD 05/10/2024 12:11 PM [facility] eGFR 110 >=60 mL/min/1. 73m2 LAB CHEMISTRY METHOD 05/10/2024 12:11 PM [facility] Comment:Calculation based on the??Chronic Kidney Disease Epidemiology Collaboration (CKD-EPI) equation refit??without adjustment for race. BUN/Creatinine Ratio 14.1 LAB CHEMISTRY METHOD 05/10/2024 12:11 PM EDT [facility] Calcium 9.7 8.5 - 10.5 mg/dL LAB CHEMISTRY METHOD 05/10/2024 12:11 PM EDT [facility] Blood Venous blood specimen / Unknown Venipuncture / Unknown 05/10/2024 8:42 AM EDT 05/10/2024 10:18 AM EDT us Kumar Torres MD LAB BLOOD ORDERABLES Final Result [facility] [address] [place] [address], documented in this encounter Visit Diagnoses Diagnosis Type 2 diabetes mellitus without complications (CMS/HCC V24, CMS/HCC V28) Hypothyroidism, unspecified Anemia, unspecified documented in this encounter Care Teams Cigarette Tipper Relationship Specialty Start Date End Date Kumar Torres MD [address] [place] [id number] PCP - General Internal Medicine 03/08/24 documented as of this encounter
--- OUTSIDE RECORDS SUMMARY | 2024-06-19 10:52 | XMS_ITS | Patient Health Record ---
Author Organization [facility] Address [address] [place] [address] Care Team Providers Care Refinish Technician Name Role Phone CASSIE DAWKINS Primary Care Provider Charly Olivares Unavailable [phone] Allergies Allergen (clinical drug ingredient) Drug/Non Drug [...] Problem Status W/U Status Risk Notes Problem 286150404 Encounter for screening for malignant neoplasm of colon (Z12.11) Active confirmed Problem 719004529 Family history of colon cancer (Z80.0) Active confirmed Problem 251678304 Long-term use of aspirin therapy (Z79.82) Active confirmed Plan Of Treatment Pending Test Test Name Order Date GI BIOPSY 08/03/2019 Future Test Test Name Order Date COLONOSCOPY 04/26/2019 Insurance Providers Payer Name Payer Address Payer Phone Subscriber Number Group Number Insured Name Patient Relationship to Insured Coverage Start Date Coverage End Date MEDICARE OF [place] [address] [place] [address] [id number] ORQUIDEA MONCADA Self - patient is the insured [facility] [address] [place] [address] [id number] ORQUIDEA MONCADA Self - patient is the insured Medical (General) History Medical History History ICD Code NIDDM Hypertension Denies NM,,CVA,Lung disease,renal diseas e Back problems--compression fractures Hyperlipidemia Osteoporosis Surgical History Surgery Date(Month/Year) Partial thyroidectomy 2019 Right elbow surgery 2019 Lip surgery Cleft palate
--- OUTSIDE RECORDS SUMMARY | 2024-06-19 10:52 | XMS_ITS | Encounter Summary ---
Author Organization [facility] Address [address] [place] [address] Care Team Providers Care Grid Maker Name Role Phone Kumar Torres MD Primary Care Provider [phone]- [phone] Encounter Details Date Type Department Care Team (Late st Contact Info) Description 02/22/2024 Lab Requisition [facility] - Main Lab [address] [facility] [place] [address] Kumar Torres MD [address] [place], [place] [id number] Nontoxic single thyroid nodule; Other testicular dysfunction; Vitamin D deficiency, unspecified; Age-related osteoporosis without current pathological fracture; Type 2 diabetes mellitus without complications (CMS/HCC V24, CMS/HCC V28) Social History Tobacco Use Types Packs/Day Years [...] Testosterone, free (02/23/2024 5:45 AM EST) Pathologist [facility] Testosterone Free 34.6 pg/mL 025 4:04 PM EST [facility] Comment: No reference range available for males under 20 years or over 50 years. Test performed at [facility], [address], [place], [place] ??[address] ? [phone] Juany Boogie MD, PhD - Dental Hygiene Administrative Assistant Blood Venous blood specimen / Unknown Venipuncture / Unknown 02/23/2024 5:45 AM EST 02/23/2024 9:48 AM EST us Kumar Torres MD LAB BLOOD ORDERABLES Final Result Performing Organization Address [facility]/ZIP Co de Phone Number [facility] [address] [place] [address] * (ABNORMAL) Testosterone, total (02/23/2024 5:45 AM EST) [facility] Testosterone 1,247(H) 229 - 902 ng/dL LAB CHEMISTRY METHOD 02/23/2024 10:32 AM EST [facility] Blood Venous blood specimen / Unknown Venipuncture / Unknown 02/23/2024 5:45 AM EST 02/23/2024 9:48 AM EST us Kumar Torres MD LAB BLOOD ORDERABLES Final Result Performing Organization Address [facility] Co de Phone Number [facility] [address] [place] [address], * Collagen type 1, c-telopeptide (02/23/2024 5:45 AM EST) [facility] Collagen Type 1, C-Telopeptide (CTx) 59 pg/mL 02/26/2024 3:14 PM EST [facility] Comment: Reference Range for Males 18-30 years ? 72-1395 pg/mL 31-50 years ? 46-787 pg/mL 51-70 years ? 34-896 pg/mL >70 years ? Not Established Test performed at [facility], [address] [place], [place] ??[address] ? [phone] Juany Boogie MD, PhD - Dental Hygiene Administrative Assistant Blood Venous blood specimen / Unknown 02/23/2024 5:45 AM EST 02/23/2024 10:45 AM EST us Kumar Torres MD LAB BLOOD ORDERABLES Final Result [facility] [place] [address] [place] [address] * Vitamin D 25 hydroxy (02/23/2024 5:45 AM EST) Vit D, 25-Hydroxy 38.8 30.0 - 80.0 ng/mL LAB CHEMISTRY METHOD 02/23/2024 10:30 AM EST [facility] Blood Venous blood specimen / Unknown Venipuncture / Unknown 02/23/2024 5:45 AM EST 02/23/2024 9:48 AM EST us Kumar Torres MD LAB BLOOD ORDERABLES Final Result Performing Organization Address [facility] Co de Phone Number [facility] [address] [place] [address], [place] [phone] * (ABNORMAL) Vitamin B12 (02/23/2024 5:45 AM EST) Vitamin B-12 1,291(H) 250 - 900 pcg/mL LAB CHEMISTRY METHOD 02/23/2024 10:47 AM EST [facility] Blood Venous blood specimen / Unknown Venipuncture / Unknown 02/23/2024 5:45 AM EST 02/23/2024 9:48 AM EST us Kumar Torres MD LAB BLOOD ORDERABLES Final Result Performing Organization Address City/[facility]/ZIP Co de Phone Number [facility] [address] [place] [address], [place] [phone] * (ABNORMAL) Hemoglobin A1c (02/23/2024 5:45 AM EST) Hemoglobin A1C 7.1(H) <6.5 % LAB CHEMISTRY METHOD 02/23/2024 11:53 AM [facility] Mean Bld Glu Estim. 157 mg/dL LAB CHEMISTRY METHOD 02/23/2024 11:53 AM [facility] Blood Venous blood specimen / Unknown Venipuncture / Unknown 02/23/2024 5:45 AM EST 02/23/2024 9:49 AM EST Kumar Torres MD LAB BLOOD ORDERABLES Final Result [facility] [address] [place] [address], [place] [phone] * Lipid panel with reflex to direct LDL (02/23/2024 5:45 AM EST) Pathologist [facility] Cholesterol 103 0 - 200 mg/dL LAB [...] Torres MD LAB BLOOD ORDERABLES Final Result [facility] [address] [place] [address], * (ABNORMAL) Comprehensive metabolic panel (02/23/2024 5:45 AM EST) Sodium 125(L) 133 - 145 mmol/L LAB CHEMISTRY METHOD 02/23/2024 10:25 AM [facility] Potassium 5.3 3.5 - 5.5 mmol/L LAB CHEMISTRY METHOD 02/23/2024 10:25 AM [facility] Chloride 91(L) 96 - 110 mmol/L LAB CHEMISTRY METHOD 02/23/2024 10:25 AM [facility] CO2 30 21 - 32 mmol/L LAB CHEMISTRY METHOD 02/23/2024 10:25 AM [facility] Anion Gap 4 3 - 11 LAB CHEMISTRY METHOD 02/23/2024 10:25 AM [facility] Glucose 116(H) 70 - 100 [...] AM EST 02/23/2024 9:48 AM EST Kumar oTrres MD LAB BLOOD ORDERABLES Final Result [facility] [address] [place] [address], * (ABNORMAL) Complete blood count (02/23/2024 5:45 AM EST) WBC 8.4 4.8 - 10.8 K/mcL LAB HEMETOLOGY METHOD 02/23/2024 9:55 AM EST [facility] RBC 4.70 4.50 - 5.50 [facility] LAB HEMETOLOGY METHOD 02/23/2024 9:55 AM [facility] Hemoglobin 13.0(L) 13.5 - 17.5 g/dL LAB HEMETOLOGY METHOD 02/23/2024 9:55 AM [facility] Hematocrit 41.2(L) 42.0 - 54.0 % LAB HEMETOLOGY METHOD 02/23/2024 9:55 AM [facility] MCV 88.6 79.0 - 98.0 FL LAB HEMETOLOGY METHOD 02/23/2024 9:55 AM [facility] MCH 28.0 27.0 - 32.0 pcg LAB HEMETOLOGY METHOD 02/23/2024 9:55 AM [facility] MCHC 31.6(L) 32.0 - 37.0 g/dL LAB HEMETOLOGY METHOD 02/23/2024 9:55 AM [facility] RDW 13.2 11.0 - 15.0 % LAB HEMETOLOGY METHOD 02/23/2024 9:55 AM [facility] Platelets 443(H) 130 - 400 K/mcL LAB HEMETOLOGY METHOD 02/23/2024 9:55 AM [facility] MPV 9.4 7.0 - 11.0 FL LAB HEMETOLOGY METHOD 02/23/2024 9:55 AM [facility] NRBC 0.0 <1.0 % LAB HEMETOLOGY METHOD 02/23/2024 9:55 AM [facility] NRBC Absolute 0.00 <0.10 K/mcL LAB HEMETOLOGY METHOD 02/23/2024 9:55 AM [facility] Blood Venous blood specimen / Unknown Venipuncture / Unknown 02/23/2024 5:45 AM EST 02/23/2024 9:49 AM EST Kumar Torres MD LAB BLOOD ORDERABLES Final Result [facility] [address] [place] [address], documented in this encounter Visit Diagnoses Diagnosis Nontoxic single thyroid nodule Nontoxic uninodular goiter Other testicular dysfunction Vitamin D deficiency, unspecified Age-related osteoporosis without current pathological fracture Type 2 diabetes mellitus without complications (CMS/[facility] V24, CMS/[facility] V28) documented in this encounter Additional Health Concerns Infection Onset Date Last Indicated Resolved Time Respiratory Rule-Out 03/14/2024 03/14/2024 025 10:41 AM EST documented as of this encounter Care Teams Grid Maker Relationship Specialty Start Date End Date Kumar Torres MD [address] [place] [id number] PCP - General Internal Medicine 03/08/24 documented as of this encounter
--- NOTE | 2024-06-19 10:58 | ED_ITS ---
HPI - General Adult General Chief complaint: Wound/Laceration Stated complaint: RT FOOT LAC PER EMS Time Seen by Provider: 06/19/24 10:58 Source: patient History of Present Illness HPI narrative: 58-year-old who has a history of hypertension, diabetes presents for evaluation of bleeding from a wound from his right foot. Patient states he sustained a laceration there approximately 2 weeks ago. It has been healing quite well. Patient states while he was getting out of the shower, he accidentally scraped the dorsum of his foot which dislodge the scab. Patient reported significant amount of bleeding. Area was bandage and bleeding was controlled. Patient has no physical complaints at this time. He denies having any pain to this area. No other lesions noted. He is not on aspirin or anticoagulants. Related Data Home Medications ?Medication ?Instructions ?Recorded ?Confirmed alendronate 70 mg tablet 70 mg PO QWEEK 01/20/24 aspirin 81 mg tablet,delayed 81 mg PO DAILY 01/20/24 release calcium carbonate (Calcium Antacid) mg PO 01/20/24 cholecalciferol (vitamin D3) 1,250 PO 01/20/24 mcg (50,000 unit) capsule cyanocobalamin (vitamin B-12) 1,000 mcg PO DAILY 01/20/24 1,000 mcg tablet (Vitamin B-12) duloxetine 30 mg capsule,delayed 30 mg PO DAILY 01/20/24 release glipizide 2.5 mg tablet, extended 2.5 mg PO DAILY 01/20/24 release 24 hr lisinopril 40 mg tablet 40 mg PO DAILY 01/20/24 metformin 1,000 mg tablet 1,000 mg PO BID 01/20/24 metoprolol tartrate 100 mg tablet mg PO 01/20/24 omeprazole 20 mg capsule,delayed 20 mg PO DAILY 01/20/24 release testosterone cypionate 200 mg/mL mg IM 01/20/24 intramuscular oil atorvastatin 10 mg tablet mg PO DAILY 05/06/24 Allergies Allergy/AdvReac Type Severity Reaction Status Date / Time Penicillins [PENICILLINS] Allergy Intermediate rash/hives Verified 06/19/24 10:35 Review of Systems Review of Systems: Yes all other systems are reviewed and are negative Cardiovascular: Cardiovascular: Denies chest pain Respiratory: Respiratory: Denies cough Integumentary/Breasts: Skin/Breast: Denies erythema, Denies rash and Denies skin swelling PMFSH Past Medical History Medical History Diverticulosis Resides in senior facility GERD (gastroesophageal reflux disease) Diabetes Hyperlipidemia HTN (hypertension) Surgical History History of open reduction and internal fixation (ORIF) procedure H/O colonoscopy (~2019) Family History Family History Mother Colon abnormality Leukemia Maternal Aunt Colon cancer Social History Social History Alcohol intake: never Patient Tobacco Use Status: Never used Tobacco Advance Directives: No Advance Directives Information Provided: Yes Physical Exam ED Vital Signs: Vital Signs - 24 hr 06/19/24 10:32 Temperature 96.4 F L Pulse Rate 70 Respiratory Rate 18 Blood Pressure 142/90 H Pulse Oximetry 97 Oxygen Delivery Method Room Air BMI result Body Mass Index 28.5 Const General: cooperative and no acute distress Skin Other: There is a 3-4 mm shallow ulceration to the dorsum of the right foot, mid metatarsal. There was no erythema or active bleeding. There was no tenderness. The patient's feet are covered in dried blood bilaterally. There was no evidence of active bleeding. Medical Decision Making Medical Decision Making MDM Narrative: 58-year-old male who has a history of hypertension, diabetes, with accidental removal of a scab to the dorsum of the right foot. Bleeding has been controlled at this time. The dressing had been removed. The patient's feet were cleaned using sterile water and hydrogen peroxide. No additional areas of injury are noted, and no overt evidence of new lacerations noted to the feet bilaterally. The area to the dorsum of the right foot was observed, no additional bleeding noted. Bandage was applied. Potentially could have been venous injury due to the amount of bleeding however no evidence of this at this time. No indication for additional imaging. There is also no evidence of secondary infection. Reviewed all discharge instructions. No further questions at this time. Differential Diagnosis Differential Diagnoses: The differential diagnosis associated with the presentation includes Laceration Abrasion Venous injury Arterial injury Contusion Cellulitis or abscess Chronic Conditions Patient?s care impacted by: Diabetes and Hypertension Discharge Plan Discharge Clinical Impression: Bleeding Abrasion foot/toe Qualifiers: Encounter type: initial encounter Laterality: right Qualified Code(s): S90.811A - Abrasion, right foot, initial encounter Patient Disposition: Home, Self-Care Instructions: Abrasion (ED) Additional Instructions: Keep the area clean and dry. Avoid overuse, direct pressure or anything that may agitate the area. You may replace the bandage daily. If rebleeding occurs, hold direct pressure for 15 minutes. If bleeding cont inues, return immediately to the emergency department. Follow-up with your primary care provider. Call this week to schedule a follow- up appointment. Return to the emergency department if you have any worsening of symptoms, or any concerns. Get well soon! Prescriptions: No Action duloxetine 30 mg capsule,delayed release(DR/EC) 30 mg PO DAILY omeprazole 20 mg capsule,delayed release(DR/EC) 20 mg PO DAILY testosterone cypionate 200 mg/mL oil IM metformin 1,000 mg tablet 1,000 mg PO BID glipizide 2.5 mg tablet extended release 24hr 2.5 mg PO DAILY lisinopril 40 mg tablet 40 mg PO DAILY alendronate 70 mg tablet 70 mg PO QWEEK metoprolol tartrate 100 mg tablet PO cholecalciferol (vitamin D3) 1,250 mcg (50,000 unit) capsule PO calcium carbonate [Calcium Antacid] 200 mg calcium (500 mg) tablet,chewable PO cyanocobalamin (vitamin B-12) [Vitamin B-12] 1,000 mcg tablet 1,000 mcg PO DAILY aspirin 81 mg tablet,delayed release (DR/EC) 81 mg PO DAILY atorvastatin 10 mg tablet PO DAILY Print Language: Pashto
[2024-06-19 12:54] VITALS: BP 142/90; PULSE 70; RESP 18; TEMP 35.8; O2SAT 97
== END 2024-06-19 12:54 | disposition home or self-care (01) ==
PROVIDERS: Emergency Provider Emergency Medicine; PCP Internal Medicine
DX: S90.811A Abrasion, right foot, initial encounter (principal); X58.XXXA Exposure to other specified factors, initial encounter; Y93.9 Activity, unspecified; Y92.9 Unspecified place or not applicable; Y99.8 Other external cause status
CPT/HCPCS: 99282; 99283